=== PATIENT | female | born 1985 | race Caucasian/White ===

== ENCOUNTER 2017-12-20 15:25 | Inpatient (IN) ==
[~2017-12-20 15:25] MED LIST: DiphenhydrAMINE 50 MG/ML INJECTION IVP PRN; NALOXONE 0.4 MG/ML INJECTION IVP PRN; ONDANSETRON 4 MG/2 ML INJECTION IVP PRN; ROPIVACAINE 1% 10MG/ML INJ 200 MG, SUFentanil 50 MCG in NS 100 ML EPI PRN
--- OUTSIDE RECORDS SUMMARY | 2017-12-20 15:33 | External Medical Summary | Referral Summary ---
:1985 Author Organization [facility] Address [address] [place] [address] JO[place] Kaur [id number] Care Team Providers Name Role Phone Omari Terry Primary Care Physician Encounter VC Date(s): 08/17/15 - 08/17/15 [facility] [address] [place] [phone] [place] Discharge Disposition: 01-Home or Self Care Attending Physician: Omari Terry MD Admitting Physician: Omari Terry MD Vital Signs Most recent to oldest [Reference Range]: 1 Temperature Tympanic [36.6-38.1 degC] 37.3 degC (08/17/15 1:50 PM) Peripheral Pulse Rate [60-100 bpm] 92 bpm (08/17/15 1:50 PM) Blood Pressure [90-140/60-90 mmHg] 134/86 mmHg (08/17/15 1:50 PM) SpO2 98 % (08/17/15 1:50 PM) Problem List Condition Effective Dates Status Health Status Informant Abnormal loss of weight(Confirmed) Active Acute bronchitis(Confirmed) Active Acute chest pain(Confirmed) Active Acute gastritis(Confirmed) Active Acute pharyngitis(Confirmed) Active D-dimer, elevated(Confirmed) Active Early satiety(Confirmed) Active med sun exposure and no serious Active sunburns(Confirmed) Fatigue(Confirmed) Active Fever(Confirmed) Active Ingrown toenail(Confirmed) Active Common migraine(Confirmed) Active Nausea(Confirmed) Active Pain around both eyes(Confirmed) Active Thrombocytopenia(Confirmed) Active Acute viral syndrome(Confirmed) Active Allergies, Adverse Reactions, Alerts No Known Medication Allergies Medications cephalexin 500 mg oral capsule 500 mg 1 caps, Oral, QID, # 30 caps, 0 Refill(s), [id number], 1 caps Oral QID Start Date: 08/17/15 Stop Date: 08/25/15 Status: Orderedibuprofen as needed for pain, 0 Refill(s) Start Date: 04/28/15 Status: OrderedSprintec 0.25 mg-35 mcg oral tablet 1 tabs, Oral, Daily, # 28 tabs, 0 Refill(s) Start Date: 08/17/15 Status: Ordered Results No data available for this section Immunizations Vaccine Date Refusal Reason tetanus/diphth/pertuss (Tdap) adult/adol 08/17/15 tetanus/diphth/pertuss (Tdap) adult/adol 06/30/08 hepatitis A-hepatitis B vaccine 01/11/09 hepatitis A-hepatitis B vaccine 11/16/08 hepatitis A-hepatitis B vaccine 06/30/08 human papillomavirus vaccine 11/16/08 influenza virus vaccine, inactivated1 08/04/14 influenza virus vaccine, live 08/01/13 1Result Comment: [08/04/2014] See scanned document Procedures Procedure Date Related Diagnosis Body Site Incision and drainage of abscess (eg, carbuncle, 08/17/15 suppurative hidradenitis, cutaneous or subcutaneous abscess, cyst, furuncle, or paronychia); simple or single.. Extraction of wisdom tooth Social History Social History Type Response Smoking Status Never smoker Assessment and Plan Extracted from: Title: Ambulatory Patient Education Author: Omari Terry MD Date: Family Medicine Abscess An abscess is an infected area that contains a collection of pus and debris. It can occur in almost any part of the body. An abscess is also known as a furuncle or boil. CAUSES An abscess occurs when tissue gets infected. This can occur from blockage of oil or sweat glands, infection of hair follicles, or a minor injury to the skin. As the body tries to fight the infection, pu s collects in the area and creates pressure under the skin. This pressure causes pain. People with weakened immune systems have difficulty fighting infections and get certain abscesses more often. SYMPTOMS Usually an abscess develops on the skin and becomes a painful mass that is red , warm, and tender. If the abscess forms under the skin, you may feel a moveable soft area under the skin. Some abscesses br eak open (rupture) on their own, but most will continue to get worse without care. The infection can spread deeper into the body and eventually into the bloodstream, causing you to feel ill. DIAGNOSIS Your caregiver will take your medical history and perform a physical exam. A sample of fluid may also be taken from the abscess to determine what is causing your infection. TREATMENT Your caregiver may prescribe antibiotic medicines to fight the infection. However, taking antibiotics alone usually does not cure an abscess. Your caregiver may need to make a small cut (incision) in th e abscess to drain the pus. In some cases, gauze is packed into the abscess to reduce pain and to continue draining the area. HOME CARE INSTRUCTIONS Only take xxxw-npe-yqduuct or prescription medicines for pain, discomfort , or fever as directed by your caregiver. If you were prescribed antibiotics, take them as directed. Finish them even if you start to feel better. If gauze is used, follow your caregiver's directions for changing the gauze. To avoid spreading the infection: Keep your draining abscess covered with a bandage. Wash your hands well. Do not share personal care items, towels, or whirlpools with others. Avoid skin contact with others. Keep your skin and clothes clean around the abscess. Keep all follow-up appointments as directed by your caregiver. SEEK MEDICAL CARE IF: You have increased pain, swelling, redness, fluid drainage, or bleeding. You have muscle aches, chills, or a general ill feeling. You have a fever. MAKE SURE YOU: Understand these instructions. Will watch your condition. Will get help right away if you are not doing well or get worse. Document Released: 07/04/2006 Document Revised: 03/25/2013 Document Reviewed: 12/06/2012 ExitCare Patient Information 2015 L2 [facility]. This information is not intended to replace advice given to you by your health care provider. Make sure you discuss any questions you have with your health care provider. No follow up information was provided. Extracted from: Title: great toe abscess Author: Omari Terry MD Date: 08/17/15 Impression and Plan Diagnosis Abscess of great toe (KDI26-TY L02.611, Working, Medical). Acute bronchitis (URQ13-QU J20.9, Working, Medical). Acute URI (XCQ19-EV J01.40, Working, Medical). Plan: 1) The right great toe was prepped in the usual sterile fashion, then then the proximal nail was incised with battery-powered cautery and copious pus expressed from the incision. This was cultu red and a bandaid applied. The patient tolerated the procedure well and felt much better afterwards. 2) Keep the toe completely dry for at least 24 hours. 3) Tdap was given today. 4) Take the Cephalexin as prescribed. Interference with the effectiveness of the BCP was told to the patient. 5) Followup as needed.. Orders Orders (Selected) Outpatient Orders Ordered Boostrix (Tdap): 0.5 mL, IntraMuscular, Once Drain Skin Abscess, Simple/Single 45468: Office Visit Level 3 Est 41074: Ordered (Pending Collection) Wound Culture: Prescriptions Prescribed cephalexin 500 mg oral capsule: 500 mg=1 caps, Oral, QID, 30 caps, 0 Refill(s). Dx/Order Association Plan: Diagnosis: Abscess of great toe Comment: Ordered: Drain Skin Abscess, Simple/Single 42178; 08/17/15 15:02: 00 MYCOLOGIST, 1, Abscess of great toe Office Visit Level 3 Est 76934; 08/17/15 15:00:00 MYCOLOGIST, 25, Abscess of great toe | Acute bronchitis | Acute URI Diagnosis: Acute URI Comment: Ordered: Office Visit Level 3 Est 66506; 08/17/15 15:00:00 MYCOLOGIST, 25, Abscess of great toe | Acute bronchitis | Acute URI Diagnosis: Acute bronchitis Comment: Ordered: Office Visit Level 3 Est 16140; 08/17/15 15:00:00 MYCOLOGIST, 25, Abscess of great toe | Acute bronchitis | Acute URI Additional Orders: Comment: Ordered: cephalexin 500 mg oral capsule,500 mg 1 caps, Oral, QID, # 30 caps, 0 Refill(s), Pharmacy: [facility] #[id number], 1 caps Oral QID End of Orders ."
--- OUTSIDE RECORDS SUMMARY | 2017-12-20 15:33 | External Medical Summary | Continuity of Care Document ---
:1985 Author Organization [facility] Address [address] [place], [place] [id number] Phone Care Team Providers Name Role Phone Omari Terry MD Unavailable Allergies, Adverse Reactions, Alerts Substance Reaction Severity Status No Known Drug Allergies Unknown Active Medications Medication Instructions Dosage Effective Dates Status Comments (start - stop) KERYDIN (unknown apply by topical - Active strength) route every day to affected toenail(s) multivitamin capsule take 1 capsule by Not Available - Active oral route every day amoxicillin 500 mg take 1 capsule by - Active capsule oral route every 12 hours Problems Condition Effective Dates (start - stop) Clinical Status Encounter for suprvsn of normal - , second trimester 27 weeks gestation of - Pap Smear Screening, Cervix - Encounter for suprvsn of normal - , first trimester Less than 8 weeks gestation of - Encounter for suprvsn of normal - , third trimester 29 weeks gestation of - Unspecified lump in breast Unspecified lump in breast Unspecified lump in breast Unspecified lump in breast Unspecified lump in breast Dysfunctional Uterine Bleeding 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 (general) (routine) w/o abn findings Pap Smear Screening, Cervix Encounter for surveillance of contraceptive pills Complete or unsp spontaneous without complication Matern care for oth or susp poor fetl - grth, 2nd tri, unsp 14 weeks gestation of - Matern care for oth or susp poor fetl - grth, 2nd tri, unsp Contact w and exposure to oth viral - communicable diseases 18 weeks gestation of - Contact w and exposure to oth viral - communicable diseases Encounter for suprvsn of normal - , first trimester 9 weeks gestation of - Encounter for suprvsn of normal - , second trimester 18 weeks gestation of - Encounter for suprvsn of normal - , second trimester 25 weeks gestation of - Encounter for suprvsn of normal - , second trimester 22 weeks gestation of - Initiation of Oral Contraceptives - Active Breast Lump/Mass - Active Active Procedures Procedure Date OB Visit No Charge Results Test Name Date and Time Measure Units Reference Range Abnormal Flag Comments Unknown Advance Directives Directive Yes / No Effective Date File Name Unknown Encounters Encounter Practice Location Reason(s) Diagnoses Date Provider Care Team Description For Visit Members Rupesh [place] Encounter for Oct- Judd Referring In Womens suprvsn of normal 2-201 Katharina. Provider: Jaspreet ABARCA, , third 8 700 Omari [address] [email or web address] weeks [address] [facility], 1522, gestation of Center [address] [place] [address], [facility] [address] [facility], 120, [place], [id number], Ashwin Simla, [facility] [place], [address]. tel:[phone] tel: [phone] , . [id number] tel: [phone] [facility] Encounter for Sep- Judd Referring In Womens suprvsn of normal 8-201 Katharina. Provider: Jaspreet ABARCA, , second 7 700 Omari PO Box [id number] weeks Medical Mara B, 1522, gestation of Center [address] [place] [address], Dr [facility], 120, [place], [id number], Ashwin Christopher, [facility] [place], [address]. tel: [phone] tel: , . [id number] tel: [phone] [facility] Encounter for Dec-0 Judd Referring In Womens suprvsn of normal 4-201 Katharina. Provider: Jaspreet ABARCA, , second 7 700 Omari PO Box [id number] [address] [facility], 1522, gestation of Center [address], , [facility], 120, Center, [id number], Ashwin Simla, [facility] [place], [address]. tel:[phone] tel: , [place]. [id number] tel: [phone] Rupesh [place] Encounter for Nov-1 Judd Referring In Womens suprvsn of normal 3-201 Katharina. Provider: Jaspreet ABARCA, , second 7 700 Omari PO Box [email or web address] [facility], 1522, gestation of [address], , [facility], 120, Center, [id number], Ashwin Simla, [facility] [place], [address]. tel: tel: , [place]. [id number] tel:[phone] Rupesh [place] Encounter for Oct-1 Judd Referring In Womens suprvsn of normal 8-201 Katharina. Provider: Jaspreet ABARCA, , second 7 700 Omari PO Box [email or web address] weeks [facility], 1522, gestation of [place] [address] [place], , [facility], 120, Center, [id number], Ashwin Christopher, [facility] [place], [address]. tel:[phone] tel: , [place]. [id number] tel: [phone] Rupesh [place] Matern care for Oct-1 Judd Referring In Womens Ultrasound oth or susp poor 8-201 Katharina. Provider: Jaspreet ABARCA, fetl grth, 2nd 7 700 Omari PO Box tri, unspContact [facility], 1522, w and exposure to [place] [address], oth viral , [facility], communicable 120, Center, [id number], [id number] weeks Ashwin [place], [place], [address]. tel: [phone] tel: , . [id number] tel:[phone] Rupesh [place] Contact w and Sep-2 Judd Referring In Womens exposure to oth 1-201 Katharina. Provider: Jaspreet ABARCA, viral 7 700 Omari PO Box communicable Medical [facility], 1522, diseases Center [address], , [facility], 120, Center, [id number], Ashwin Simla, [facility] [place], [address]. tel:[phone] tel: , [place]. [id number] tel: [phone] Rupesh [place] Matern care for Sep- Judd Referring In Womens oth or susp poor 8-201 Katharina. Provider: Jaspreet ABARCA, fetl grth, 2nd 7 700 Omari PO Box tri, [id number] weeks [address] [facility], 1522, gestation of Center [address] [place], [place] [address]ta, , [facility], 120, Center, , Ashwin Simla, [facility] [place], [address]. tel:[phone] tel: , [place]. [id number] tel: [phone] Rupesh [place] Encounter for May- Judd Referring In Womens suprvsn of normal 5-201 Katharina. Provider: Jaspreet ABARCA, , first 7 700 Omari PO Box [email or web address] weeks [address] [facility], 1522, gestation of Center [facility] [address], , [facility], 120, Center, [id number], Ashwin Christopher, [facility] [place], [address]. tel:[phone] tel: , [place]. [id number] tel: [phone] Rupesh [place] Encounter for Apr-3 Judd Referring In Womens suprvsn of normal 1-201 Katharina. Provider: Jaspreet ABARCA, , first 7 700 Omari PO Box trimesterLess Medical Mara B, 1522, than 8 weeks [address], gestation of Dr [facility], 120, Center, [id number], Ashwin Simla, [facility] [place], [address]. tel:[phone] tel: , . [id number] tel: [phone] Rupesh [place] Unspecified lump Feb-2 Judd In Womens in breast 4-201 [place]. Jaspreet ABARCA, 7 700 PO Box Medical 1522, [place] [address] [place], [facility] [place], 120, [id number], [place], [place], tel:[phone] , [place]. tel: [phone] Rupesh [place] Complete or unsp Feb-2 Judd Referring In Womens spontaneous 0-201 [place]. Provider: Jaspreet ABARCA, without 7 700 Omari PO Box complication Medical [facility], 1522, Center [facility] Dr [place], [facility], 120, Center, [id number], Ashwin Christopher, [facility] [place], [address]. tel:[phone] tel: , [place]. [id number] tel: [phone] Rupesh [place] Pap Smear Feb-0 Judd Referring In Womens Screening, Cervix 8- [place]. Provider: Jaspreet ABARCA, 7 700 Omari PO Box [facility], 1522, Center [facility] Dr [place], [facility], 120, Center, [id number], Ashwin Christopher, [facility] [place], [address]. tel:[phone] tel: , [place]. [id number] tel: [phone] Rupesh [place] Unspecified lump Oct-1 Judd Referring In Womens in breast 1-201 [place]. Provider: Jaspreet ABARCA, 6 700 Omari PO Box [facility], 1522, Center [facility] Dr [place], [facility], 120, Center, [id number], Ashwin Christopher, [facility] [place], [address]. tel:[phone] tel: , [place]. [id number] tel: [phone] Rupesh [place] Unspecified lump Sep-0 Judd In Womens in 6-201 [place]. Jaspreet ABARCA, breastUnspecified 6 700 PO Box lump in breast Medical 1522, [place] [address] [place], [facility] [place], 120, [id number], [place], [place], tel:[phone] , [place]. tel: [phone] Rupesh [place] Dysfunctional Feb-2 Judd Referring In Womens Uterine Katharina. Provider: Bereket Yapntfelicia 6 700 Omari PO Box for bacon slicer exam Awais Briscoe, 1522, (general) Center [facility] [place], (routine) w/o abn , [facility] [place], findingsPap Smear 120, Center, , Screening, [facility], [place], [address]. tel:+ for surveillance [phone] tel:[phone] of contraceptive , [place]. [id number] pills tel: [phone] [facility] Unspecified lump b- Judd In Womens in breast Katharina. Jaspreet ABARCA, 6 700 PO Box Medical 1522, [place], , [facility] [place], 120, , [place], tel: [phone] , . tel: [phone] Family History Family Member Diagnosis Age At Onset No family history of Pulmonary Embolism No family history of Thyroid Disorder No family history of Osteoporosis No family history of Venous Thrombosis No family history of Breast Cancer No family history of Uterine Cancer Paternal Grandfather Cardiovascular Disease No family history of Epilepsy No family history of Lung Disease No family history of Kidney Disease No family history of Hypertension No family history of Colon Cancer No family history of Stroke No family history of Ovarian Cancer Paternal Grandfather Diabetes mellitus Immunizations Vaccine Date Status Comments Influenza, injectable, completed Source: New Immunization Record quadrivalent, preservative free, 3 yrs or older Influenza, injectable, completed Source: New Immunization Record quadrivalent, preservative free, 3 yrs or older Payers Payer name Insurance type Covered constitution party ID Authorization(s) [employer] CI [id number] [facility] CI [id number] [employer] CI [id number] [employer] CI [id number] Social History Type Description Quantity Date Captured Alcohol Use Details Caffeine Use Details Unknown Tobacco Use Status Unknown Smoking Status Never smoker Vital Signs Date / Height Weight BMI Pulse Blood Temperature Respiratory Body Head BMI Time: Rate Pressure Rate Surface Circumference percentile Area 154.20 24.8 120/70 -2017 lbs 9 mm[Hg] 3:30 kg/m PM eter (2) Chief Complaint And Reason For Visit Unknown Chief Complaint And Reason For Visit Reason For Referral Reason For Referral Unknown Plan Of Care Date Type Action Status Appointment Margarita Smith BOOKED Appointment Margarita Smith BOOKED Appointment Margarita Smith BOOKED Appointment Margarita Smith BOOKED Appointment Margarita Smith BOOKED Appointment Margarita Smith BOOKED Appointment Margarita Smith BOOKED Future Order: Radiology Order Breast Ultrasound Right Breast Ordered ([id number]) Future Order: Radiology Order Breast Ultrasound Right Breast Ordered ([id number]) Future Order: Radiology Order Diagnostic Mammogram Right Breast- Ordered If indicated ([id number]) Future Order: Radiology Order Breast Ultrasound Right Breast Ordered ([id number]) Future Order: Radiology Order Diagnostic Mammogram Right Breast, Ordered if indicated ([id number]) Future Order: Radiology Order Complete OB Ultrasound > 14 Ordered Weeks ([id number]) Future Order: Lab Order Hemoglobin ([id number]) Ordered Future Order: Lab Order Hematocrit ([id number]) Ordered Future Order: Lab Order Gest. Diabetes 1-Hr Screen ([id number]) Ordered Date Type Problem Goal Intervention Status Start Date Unknown. History Of Present Illness Encounter Date Complaint History Of Present Illness This patient has no known history of present illness Functional Status Encounter Date Functional Assessment Cognitive Assessment Unknown Medications Administered Medication Instructions Dosage Effective Dates (start - stop) Status Comments Drug Treatment Unknown Instructions Date Instruction Additional Information gestational glucose lab screening HIV and other routine tests risk factors identified by history anticipated course of care nutrition and weight gain counseling, special diet toxoplasmosis precautions (cats / raw meat) exercise indications for ultrasound environmental / work hazards travel tobacco (ask, advise, assess, assist and arrange) alcohol illicit / recreational drugs use of any medications (including supplements, vitamins, herbs, OTC drugs) smoking counseling domestic violence seat belt use genetic testing new ob handbook dentist tobacco (ask, advise, assess, assist and arrange) alcohol illicit / recreational drugs use of any medications (including supplements, vitamins, herbs, OTC drugs) smoking counseling domestic violence seat belt use genetic testing Zika virus assessment & precautions dentist anticipated course of care nutrition and weight gain counseling, special diet toxoplasmosis precautions (cats / raw meat) exercise indications for ultrasound HIV and other routine tests risk factors identified by history influenza vaccine environmental / work hazards travel new ob handbook
--- OUTSIDE RECORDS SUMMARY | 2017-12-20 15:33 | External Medical Summary | Referral Summary ---
:1985 Author Organization [facility], [facility] Address [address] [place] [address] [place] [address] Care Team Providers Name Role Phone Omari Terry Primary Care Physician Encounter VC Date(s): 09/13/15 - 09/13/15 [facility] [place] [address] [place] [phone] [place] Discharge Disposition: 01-Home or Self Care Attending Physician: Omari Terry MD Admitting Physician: Omari Terry MD Vital Signs Most recent to oldest [Reference Range]: 1 Temperature Oral [35.8-37.3 degC] 36.6 degC (09/13/15 2:47 PM) Peripheral Pulse Rate [60-100 bpm] 88 bpm (09/13/15 2:47 PM) Blood Pressure [90-140/60-90 mmHg] 122/76 mmHg (09/13/15 2:47 PM) SpO2 100 % (09/13/15 2:47 PM) Problem List Condition Effective Dates Status [...] Reactions, Alerts No Known Medication Allergies Medications ibuprofen as needed for pain, 0 Refill(s) Start Date: 04/28/15 Status: OrderedSprintec 0.25 mg-35 mcg oral tablet 1 tabs, Oral, Daily, # 28 tabs, 0 Refill(s) Start Date: 08/17/15 Status: Orderedtriamcinolone 0.1% mucous membrane paste 1 tripp, Oral, TID, as needed for mouth sores, # 5 g, 1 Refill(s), Pharmacy: [facility] #[id number] Start Date: 09/08/15 Status: Ordered Results No data available for [...] Procedures Procedure Date Related Diagnosis Body Site Extraction of wisdom tooth Social History Social History Type Response Smoking Status Never smoker Assessment and Plan Extracted from: Title: Ambulatory Patient Education Author: Omari Terry MD Date: 09/13/15 Family Medicine Erythema Nodosum Erythema nodosum is also called "painful red nodules on the legs". Symptoms can include sudden onset of fever, fatigue and joint pains. Red, deep, tender, raised, bruise-like bumps form on the rider, or sometimes on the arms or trunk. The skin over the bumps is usually shiny. The symptoms usually last 1-2 weeks. The symptoms usually improve once the cause is treated. This illness may be caused by strep or fungal infection, drug reaction, , or other medical conditions. Treating the cause is important to early recovery. Erythema nodosum occurs at any age and in both sexes but more often in young adult women. Erythema nodosum is not a skin infection. It is a reaction to something internal. In most cases the illness and bumps go away with treatment. You should avoid any medicine that may have caused this reac tion. Antihistamine drugs, anti-inflammatory drugs or cortisone medicine may be prescribed to relieve symptoms. SSKI drops (Lissie) taken with juice at breakfast, lunch and dinner may have an anti-inflamm atory effect and speed the healing. Bed rest and limiting vigorous exercise help to shorten the course of erythema nodosum. Elevation of the affected limb also helps in recovery. As the condition gets better, the bumps flatten and your skin may heal with temporary bruise bernstein. These dark bernstein will clear up in several months and they are a good sign that your skin is healing. SEEK IMMEDIATE MEDICAL CARE IF: Your condition worsens, or if you have more severe symptoms such a high fever, sore throat, or repeated vomiting. Document Released: 11/01/2005 Document Revised: 12/16/2012 Document Reviewed: 11/05/2009 Exit[employer] Patient Information 2015 [employer]. This information is not intended to replace advice given to you by your health care provider. Make sure you discuss any questions you have with your health care provider. No follow up information was provided. Extracted from: Title: erythema nodosum Author: Omari Terry MD Date: 09/13/15 Impression and Plan Diagnosis Aphthous stomatitis (DNG29-VX K12.0, Working, Medical). Erythema nodosum (USB11-FC L52, Working, Medical). Plan: 1) The TB skin test was red today: 0 mm induration on the left forearm. 2) The lab was reviewed and was all normal 3) The CXR was normal. No evidence for TB or sarcoidosis. 4) Reassurance: the erythema nodosum should resolve by 6-8 weeks, and should be improving by the end of September. 5) Followup as needed. 6) No change to your current meds unless the EN doesn't improve within a few weeks.. Orders Orders (Selected) Outpatient Orders Ordered Office Visit Level 3 Est 34414: . Dx/Order Association Plan: Diagnosis: Aphthous stomatitis Comment: Ordered: Office Visit Level 3 Est 12979; 09/13/15 15:09:00 [employer], Erythema nodosum | Aphthous stomatitis Diagnosis: Erythema nodosum Comment: Ordered: Office Visit Level 3 Est 48282; 09/13/15 15:09:00 [employer], Erythema nodosum | Aphthous stomatitis End of Orders .
--- OUTSIDE RECORDS SUMMARY | 2017-12-20 15:33 | External Medical Summary | Referral Summary ---
:1985 Author Organization [facility] [place], [facility] Address [address] [place] [address] [place]aur [address] Care Team Providers Name Role Phone Omari Terry Primary Care Physician Encounter VC Date(s): 04/27/15 - 04/27/15 [facility] [place], [address] [place] [address] [place] Discharge Disposition: 01-Home or Self Care Attending Physician: Omari Terry MD Vital Signs Most recent to oldest [Reference Range]: 1 Temperature Tympanic [36.6-38.1 degC] 37.4 degC (04/27/15 5:10 PM) Peripheral Pulse Rate [60-100 bpm] 88 bpm (04/27/15 5:10 PM) Blood Pressure [90-140/60-90 mmHg] 110/78 mmHg (04/27/15 5:10 PM) SpO2 100 % (04/27/15 5:10 PM) Problem List Condition Effective Dates Status [...] sores, # 5 g, 1 Refill(s), Pharmacy: [facility] #[id number] Start Date: 09/08/15 Status: Ordered Results No [...] Patient Education Author: Omari Terry MD Date: 04/27/15 Family Medicine Chest Pain (Nonspecific) It is often hard to give a specific diagnosis for the cause of chest pain. There is always a chance that your pain could be related to something serious, such as a heart attack or a blood clot in the dimas ngs. You need to follow up with your caregiver for further evaluation. CAUSES Heartburn. Pneumonia or bronchitis. Anxiety or stress. Inflammation around your heart (pericarditis ) or lung (pleuritis or pleurisy ). A blood clot in the lung. A collapsed lung (pneumothorax ). It can develop suddenly on its own ( spontaneous pneumothorax ) or from injury (trauma ) to the chest. Shingles infection (herpes zoster virus). The chest wall is composed of bones, muscles, and cartilage. Any of these can be the source of the pain. The bones can be bruised by injury. The muscles or cartilage can be strained by coughing or overwork. The cartilage can be affected by inflammation and become sore ( costochondritis ). DIAGNOSIS Lab tests or other studies, such as X-rays, electrocardiography, stress testing , or cardiac imaging, may be needed to find the cause of your pain. TREATMENT Treatment depends on what may be causing your chest pain. Treatment may include: Acid blockers for heartburn. Anti-inflammatory medicine. Pain medicine for inflammatory conditions. Antibiotics if an infection is present. You may be advised to change lifestyle habits. This includes stopping smoking and avoiding alcohol, caffeine, and chocolate. You may be advised to keep your head raised (elevated ) when sleeping. This reduces the chance of acid going backward from your stomach into your esophagus. Most of the time, nonspecific chest pain will improve within 2 to 3 days with rest and mild pain medicine. HOME CARE INSTRUCTIONS If antibiotics were prescribed, take your antibiotics as directed. Finish them even if you start to feel better. For the next few days, avoid physical activities that bring on chest pain. Continue physical activities as directed. Do not smoke. Avoid drinking alcohol. Only take rtzw-ipe-xomgcpg or prescription medicine for pain, discomfort, or fever as directed by your caregiver. Follow your caregiver's suggestions for further testing if your chest pain does not go away. Keep any follow-up appointments you made. If you do not go to an appointment, you could develop lasting (chronic ) problems with pain. If there is any problem keeping an appointment, you must call to reschedule. SEEK MEDICAL CARE IF: You think you are having problems from the medicine you are taking. Read your medicine instructions carefully. Your chest pain does not go away, even after treatment. You develop a rash with blisters on your chest. SEEK IMMEDIATE MEDICAL CARE IF: You have increased chest pain or pain that spreads to your arm, neck, jaw , back, or abdomen. You develop shortness of breath, an increasing cough, or you are coughing up blood. You have severe back or abdominal pain, feel nauseous, or vomit. You develop severe weakness, fainting, or chills. You have a fever. THIS IS AN EMERGENCY. Do not wait to see if the pain will go away. Get medical help at once. Call your local emergency services (911 in [place] Do not drive yourself to the hospital. MAKE SURE YOU: Understand these instructions. Will watch your condition. Will get help right away if you are not doing well or get worse. Document Released: 07/04/2006 Document Revised: 12/16/2012 Document Reviewed: 04/29/2009 [facility] Patient Information 2014 [employer] [facility]. No follow up information was provided. Extracted from: Title: eye pain, chest pain, elevated Author: Omari Terry MD Date: D-Dimer Impression and Plan Diagnosis Acute chest pain (ICD9 786.50, Working, Medical). Acute viral syndrome (ICD9 079.99, Working, Medical). D-dimer, elevated (ICD9 790.92, Working, Medical). Pain around both eyes (ICD9 379.91, Working, Medical). Plan: D-Dimer was ordered, which came back elevated. Patient was advised ( per phone) later in the evening to go to the ER for further evaluation of her chest pain. I spoke with the ER doctor here in [place], advising that I thought that the patient should be evaluated for pulmonary embolism due to the chest pain, family history of renal artery thrombosis, and the elevated D-Dimer. . Orders Orders (Selected) Outpatient Orders Ordered Office Visit Level 4 Est 80868: . Dx/Order Association Plan: Diagnosis: Acute chest pain Comment: Ordered: Office Visit Level 4 Est 70592; 04/27/15 20:59:00 CDT, Acute chest pain | Pain around both eyes | D-dimer, elevated | Acute viral syndrome Diagnosis: Acute viral syndrome Comment: Ordered: Office Visit Level 4 Est 35279; 04/27/15 20:59:00 CDT, Acute chest pain | Pain around both eyes | D-dimer, elevated | Acute viral syndrome Diagnosis: D-dimer, elevated Comment: Ordered: Office Visit Level 4 Est 12324; 04/27/15 20:59:00 CDT, Acute chest pain | Pain around both eyes | D-dimer, elevated | Acute viral syndrome Diagnosis: Pain around both eyes Comment: Ordered: Office Visit Level 4 Est 02823; 04/27/15 20:59:00 CDT, Acute chest pain | Pain around both eyes | D-dimer, elevated | Acute viral syndrome End of Orders ."
--- OUTSIDE RECORDS SUMMARY | 2017-12-20 15:34 | External Medical Summary | Continuity of Care Document ---
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 Pap Smear Screening, Cervix Encounter for surveillance of contraceptive pills Complete or unsp spontaneous without complication Matern care for oth or susp poor fetl - grth, 2nd tri, unsp 14 weeks gestation of - Matern care for oth or susp poor fetl - gr, 2nd tri, unsp Contact w and exposure to oth viral - communicable diseases 18 weeks gestation of - Contact w and exposure to oth viral - communicable diseases Encounter for suprvsn of normal - , first trimester 9 weeks gestation of - Encounter for suprvsn of normal - , second trimester 27 weeks gestation of - Encounter for suprvsn [...] Provider Care Team Description For Visit Members [facility] Encounter for Sep- Judd Referring In Womens suprvsn of normal 8-201 Katharina. Provider: Jaspreet ABARCA, , second 7 700 Omari [address] [email or web address] weeks Medical [facility], 1522, gestation of [address] , [facility], 120, [place], [id number], [place], [facility] [place], [address]. tel:+ [phone] tel: , . [id number] tel: [phone] [facility] Encounter for Dec-0 Judd Referring In Womens suprvsn of normal 4-201 Katharina. Provider: Jaspreet ABARCA, , second 7 700 Omari PO Box [email or web address] weeks Medical [facility], 1522, gestation of Center [address] [place] [address], [facility] , [facility], 120, [place], [id number], [place], [facility] [place], [address]. tel: [phone] tel: , . [id number] tel: [phone] [facility] Encounter for Nov-1 Judd Referring In Womens suprvsn of normal 3-201 Katharina. Provider: Jaspreet ABARCA, , second 7 700 Omari PO Box [email or web address] weeks Medical [facility], 1522, gestation of Center [address] [place] [address], , [facility], 120, Center, [id number], [place], [address]. tel:[phone] tel: , [place]. [id number] tel: [phone] Rupesh [place] Encounter for Oct-1 Judd Referring In Womens suprvsn of normal 8-201 Katharina. Provider: Jaspreet ABARCA, , second 7 700 Omari PO Box [email or web address] weeks Medical [facility]a B, 1522, gestation of Center [address] [place], , [facility], 120, Center, [id number], [place], [address]. tel: tel: , [place]. [id number] tel:[phone] Rupesh [place] Matern care for Oct-1 Judd Referring In Womens Ultrasound oth or susp poor 8-201 Katharina. Provider: ranjan Yap, 2nd 7 700 Omari PO Box tri, unspContact Medical [facility], 1522, w and exposure to Center [address] [place], oth viral , [facility], communicable 120, Center, [id number], weeks [place], [place], [address]. tel: [phone] tel: , [place]. [id number] tel: [phone] Rupesh [place] Contact w and Sep-2 Judd Referring In Womens exposure to oth 1-201 Katharina. Provider: Jaspreet ABARCA, viral 7 700 Omari PO Box communicable Medical [facility], 1522, diseases Center [address] [place], [address], [facility], 120, Center, [id number], [place], [address]. tel: tel: , [place]. [id number] tel: [phone] Rupesh Overbrook Matern care for Sep-1 Judd Referring In Womens oth or susp poor 8-201 Katharina. Provider: ranjan Yap, 2nd 7 700 Omari PO Box tri, [email or web address] weeks Medical Mara B, 1522, gestation of Center [address] [place], , [facility], 120, Center, [id number], [place], [address]. tel:[phone] tel: , [place]. [id number] tel: [phone] Rupesh [place] Encounter for Judd Referring In Womens suprvsn of normal 5-201 Katharina. Provider: Jaspreet ABARCA, , first 7 700 Omari PO Box trimester9 weeks Medical Mara B, 1522, gestation of Center [address] [address] [place], , [facility], 120, Center, , [place], [address]. tel:[phone] tel: , [place]. [id number] tel: [phone] Rupesh [place] Encounter for Judd Referring In Womens suprvsn of normal 1-201 Katharina. Provider: Jaspreet ABARCA, , first 7 700 Omari PO Box trimesterLess Medical [facility], 1522, than 8 weeks Center [address], gestation of Dr [facility], 120, Center, , [place], [facility] [place], [address]. tel:[phone] tel: , [place]. [id number] tel: [phone] Rupesh [place] Unspecified lump Feb-2 Judd In Womens in breast 4-201 Katharina. Jaspreet ABARCA, 7 700 PO Box Medical [address] [place] [address], [facility], 120, [id number], [place], [place], tel:[phone] , [place]. tel: [phone] Rupesh Overbrook Complete or unsp Feb-2 Judd Referring In Womens spontaneous 0-201 Katharina. Provider: Jaspreet ABARCA, without 7 700 Omari PO Box complication Medical Mara B, 1522, Center [address], [facility], 120, Center, [id number], [place], [address]. tel: tel: , [place]. [id number] tel: [phone] [facility] Pap Smear Feb-0 Judd Referring In Womens Screening, Cervix [place]. Provider: Jaspreet ABARCA, 7 700 Omari PO Box Medical [facility], 1522, Center [address], [facility], 120, Center, [id number], [place], [place], [address]. tel:[phone] tel: , [place]. [id number] tel: [phone] Rupesh [place] Unspecified lump Oct-1 Judd Referring In Womens in breast [place]. Provider: Jaspreet ABARCA, 6 700 Omari PO [facility], 1522, Center [facility] [address], [facility], 120, Center, [id number], [place], [facility] [place], [address]. tel:[phone] tel: , [place]. [id number] tel: [phone] Rupesh [place] Unspecified lump Sep-0 Judd In Womens in [place]. Jaspreet ABARCA, breastUnspecified 6 700 PO Box lump in breast Medical [address] [place] [address], [facility], 120, , [facility] [place], tel:[phone] , [place]. tel: [phone] Rupesh [place] Dysfunctional Feb-2 Judd Referring In Womens Uterine [place]. Provider: Jaspreet ABARCA, BleedingEncntr 6 700 Omari PO Box for assistant attorney general exam Medical [facility], 1522, (general) Center [address] [place] [address], (routine) w/o abn , [facility], findingsPap Smear 120, Center, , Screening, [place], [place], [address]. tel: for surveillance tel: of contraceptive , [place]. [id number] pills tel: [phone] Rupesh [place] Unspecified lump Feb-1 Judd In Womens in breast [place]. Jaspreet ABARCA, 6 700 PO Box Medical [address], [facility] [place], 120, [id number], [facility] [place], tel:[phone] , [place]. tel: [phone] Family History Family Member Diagnosis Age At [...] older Payers Payer name Insurance type Covered democrat ID Authorization(s) [employer] CI [id number] [facility] CI [id number] [employer] CI [id number] [employer] CI [id number] Social History Type Description Quantity Date Captured Alcohol Use Details Caffeine Use Details Unknown Tobacco Use Status Unknown Smoking Status Never smoker Vital Signs Date / Height Weight BMI Pulse Blood Temperature Respiratory Body Head BMI Time: Rate Pressure Rate Surface Circumference percentile Area 153.70 24.8 102/70 -2017 lbs 0 mm[Hg] 3:04 kg/m PM eter (2) Chief Complaint And [...] BOOKED Appointment Margarita Smith BOOKED Future Order: Lab Order Hemoglobin ([id number]) Ordered Future Order: Lab Order Hematocrit ([id number]) Ordered Future Order: Lab Order Gest. Diabetes 1-Hr Screen ([id number]) Ordered Future Order: Radiology Order Breast Ultrasound Right Breast Ordered ([id number]) Future Order: Radiology Order Breast Ultrasound Right Breast Ordered ([id number]) Future Order: Radiology Order Diagnostic Mammogram Right Breast- Ordered If indicated ([id number]) Future Order: Radiology Order Breast Ultrasound Right Breast Ordered ([id number]) Future Order: Radiology Order Diagnostic Mammogram Right Breast, Ordered if indicated ([id number]) Future Order: Radiology Order Complete OB Ultrasound > 14 Ordered Weeks ([id number]) Date Type Problem Goal Intervention Status Start [...]
--- OUTSIDE RECORDS SUMMARY | 2017-12-20 15:34 | External Medical Summary | Continuity of Care Document ---
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) w/o abn findings Pap Smear Screening, Cervix Encounter for surveillance of contraceptive pills Complete or unsp spontaneous without complication Initiation of Oral Contraceptives - Active Breast Lump/Mass - Active Active Procedures Procedure Date No Charge Sonogram OB Visit No Charge OB Panel With An HIV Venpnctr fngr/heel/ear stick routne Urine Culture Infct antign, chlamydia trac, ampl Neisseria Gonorrhoeae, Amplification Cult, bactr, ident isolate, urine Results Test Name Date and Time Measure Units Reference Range Abnormal Flag Comments Panel Description: OBSTETRIC PANEL WHITE BLOOD CELL 11.3 Thousand/uL 3.8-10.8 H COUNT 10:45:00 RED BLOOD CELL 4.18 Million/uL 3.80-5.10 N COUNT 10:45:00 HEMOGLOBIN 12.6 g/dL 11.7-15.5 N 10:45:00 HEMATOCRIT 36.6 % 35.0-45.0 N 10:45:00 MCV 87.6 fL 80.0-100.0 N 10:45:00 MCH 30.1 pg 27.0-33.0 N 10:45:00 MCHC 34.4 g/dL 32.0-36.0 N 10:45:00 RDW 12.3 % 11.0-15.0 N 10:45:00 PLATELET COUNT 207 Thousand/uL 140-400 N 10:45:00 MPV 10.1 fL 7.5-12.5 N 10:45:00 ABSOLUTE 9300 cells/uL 1203-9527 H NEUTROPHILS 10:45:00 ABSOLUTE 1322 cells/uL 850-3900 N LYMPHOCYTES 10:45:00 ABSOLUTE 610 cells/uL 200-950 N MONOCYTES 10:45:00 ABSOLUTE 34 cells/uL 15-500 N EOSINOPHILS 10:45:00 ABSOLUTE 34 cells/uL 0-200 N BASOPHILS 10:45:00 NEUTROPHILS 82.3 % N 10:45:00 LYMPHOCYTES 11.7 % N 10:45:00 MONOCYTES 5.4 % N 10:45:00 EOSINOPHILS 0.3 % N 10:45:00 BASOPHILS 0.3 % N 10:45:00 ANTIBODY SCREEN, NO ANTIBODIES N RBC W/REFL ID, 10:45:00 DETECTED Reference range TITER AND AG No antibodies detected This assay is a screening test for the detection of red blood cell antibodies. The test is not to be used for pretransfusion screening or for the medical management of an alloimmunized . ABO GROUP O 10:45:00 RH TYPE RH(D) 10:45:00 POSITIVE RPR (DX) W/REFL NON-REACTIVE NON-REACTIV N TITER AND 10:45:00 E CONFIRMATORY TESTING HEPATITIS B NON-REACTIVE NON-REACTIV N SURFACE ANTIGEN 10:45:00 E RUBELLA ANTIBODY 1.98 index N Index (IGG) 10:45:00 Interpretation ----- <0.90 Not consistent with Immunity 0.90-0.99 Equivocal > or=1.00 Consistent with Immunity The presence of rubella IgG antibody suggests immunization or past or current infection withrubella virus.Test performed at [facility] [place] [address]Dtislky r: TERE MURGUIA DO,MPH Panel Description: HIV 1/2 ANTIGEN/ANTIBODY,FOURTH GENERATION W/RFL HIV NON-REACTIVE NON-REACTIVE N HIV-1 antigen and HIV-1/HIV- 2 antibodies were AG/AB, 10:45:00 notdetected. There is no laboratory evidence of 4TH GEN HIVinfection. PLEASE NOTE: This information has been disclosed toyou from records whose confidentiality may beprotected by state law. If your state requires suchprotection, then the state law prohibits you frommaking any further disclosure of the informationwithout the specific written consent of the personto whom it pertains, or as otherwise permitted by law.A general authorization for the release of medical orother information is NOT sufficient for this purpose. For additional information please refer tohttp://education.[employer]/faq/TXO376(This link is being provided for informational/educational purposes only.) The performance of this assay has not been clinicallyvalidated in patients less than 2 years old. Test performed at [place] [address]Gavbccva: TERE MURGUIA DO,MPH Panel Description: Bacteria identified in Urine by Culture CULTURE, URINE, 11:02:00 SEE NOTE CULTURE, URINE, ROUTINE ROUTINE MICRO NUMBER: [id number] TEST STATUS: FINAL SPECIMEN SOURCE: URINE SPECIMEN QUALITY: ADEQUATE RESULT: Single organism less than 10,000 CFU/mL isolated. These organisms, commonly found on external and internal genitalia, are considered colonizers. No further testing performed.REPORT COMMENT:RTest performed at [facility] [address] [address]Ylorqpsf: TERE MURGUIA DO,MPH Panel Description: CHLAMYDIA/N. GONORRHOEAE RNA, TMA CHLAMYDIA NOT DETECTED NOT DETECTED N TRACHOMATIS RNA, 10:50:00 TMA NEISSERIA NOT DETECTED NOT DETECTED N GONORRHOEAE RNA, 10:50:00 TMA [id number] SEE NOTE This test was 10:50:00 performed using the [employer] COMBO2 Assay([employer] The analytical performance characteristics of this assay, when used to test SurePath specimens havebeen determined by [employer]. Test performed at [facility] [address] [address]Ngixwvsg: TERE MURGUIA DO,MPH Advance Directives Directive Yes / No Effective Date File Name Unknown Encounters Encounter Practice Location Reason(s) Diagnoses Date Provider Care Team Description For Visit Members Rupesh [place] Encounter for Judd [facility] of normal 5-201 Katharina. Provider: Jaspreet ABARCA, , first 7 700 Omari [address] trimester9 weeks Medical Mara B, 1522, gestation of [place] [address], [address] [facility], [address], [place], [id number], [place], [facility], [place], [address]. tel: [phone] tel: [phone] , . [id number] tel: [phone] Rupesh [place] [facility]d [facility] 1-201 Katharina. Provider: Jaspreet ABARCA, , first 7 700 Omari PO [address] trimesterLess than Medical Mara B, 1522, 8 weeks gestation [place] [address] [place] [address], of , [facility], 120, Center, , [place], [facility], [place], [address]. tel:[phone] tel: , [place]. [id number] tel: [phone] Rupesh [place] Unspecified lump Feb-2 Judd In Womens in breast 4-201 [place]. Jaspreet ABARCA, 7 700 [facility] Medical [address], [place] [address] Prachi, [facility], 120, [id number], [facility], tel:[phone] , [place]. tel: [phone] Rupesh [place] Complete or unsp Feb-2 Judd Referring In Womens spontaneous 0-201 [place]. Provider: Jaspreet ABARCA, without 7 700 Omari [facility] complication [facility] B, 1522, Center [facility] Dr Prachi, [facility], 120, [place], , [place], [facility], [place], [address]. tel: tel: , [place]. [id number] tel: [phone] Rupesh [place] Pap Smear Feb-0 Judd Referring In Womens Screening, Cervix 8-201 [place]. Provider: Jaspreet ABARCA, 7 700 Omari [facility], 1522, Center [facility] Dr Prachi, [facility], 120, Center, [id number], [place], [facility], [place], [address]. tel:[phone] tel: , [place]. [id number] tel: [phone] Rupesh [place] Unspecified lump Oct-1 Judd Referring In Womens in breast 1-201 [place]. Provider: Jaspreet ABARCA, 6 700 Omari Luis [facility], 1522, Center [facility] Dr [place], [facility], 120, Center, [id number], [place], [facility], [place], [address]. tel:[phone] tel: , [place]. [id number] tel: [phone] Rupesh [place] Unspecified lump Sep-0 Judd In Womens in [place]. Jaspreet ABARCA, breastUnspecified 6 700 PO Box lump in breast Medical [address], [place] [address] Prachi, [facility], 120, [id number], [place], [place], tel: [phone] , [place]. tel: [phone] [facility] [place] Dysfunctional Feb-2 Judd Referring In Womens Uterine [place]. Provider: Jaspreet ABARCA, BleedingEncntr for 6 700 Omari PO Box make up artist exam (general) Medical [facility] B, 1522, (routine) w/o abn Center [address] [place] [address], findingsPap Smear , [facility], Screening, 120, [place], [id number], [facility] [place], [address]. tel: of contraceptive [phone] tel: pills , [place]. [id number] tel: [phone] Rupesh [place] Unspecified lump Feb-1 Judd In Womens in breast [place]. Jaspreet ABARCA, 6 700 [address] Medical [address], [place] [address] [place], [facility], 120, [id number], [facility] [place], tel: [phone] , [place]. tel: [phone] Family History Family Member Diagnosis Age At [...] older Payers Payer name Insurance type Covered green party ID Authorization(s) [employer] CI [id number] [facility] CI [id number] [facility] [id number] Social History Type Description Quantity Date Captured Alcohol Use Details Caffeine Use Details combo occasional per day Tobacco Use Status Never smoked tobacco Smoking Status Never smoker Vital Signs Date / Height Weight BMI Pulse Blood Temperature Respiratory Body Head BMI Time: Rate Pressure Rate Surface Circumference percentile Area 145.60 23.5 131/72 -2017 lbs 0 mm[Hg] 9:55 kg/m AM eter (2) Chief Complaint And Reason For [...] Radiology Order Breast Ultrasound Right Breast Ordered ([id number]) Future Order: Radiology Order Breast Ultrasound Right Breast Ordered ([id number]) Future Order: Radiology Order Diagnostic Mammogram Right Breast- Ordered If indicated ([id number]) Future Order: Radiology Order Breast Ultrasound Right Breast Ordered ([id number]) Future Order: Radiology Order Diagnostic Mammogram Right Breast, Ordered if indicated ([id number]) Date Type Problem Goal Intervention Status Start Date Unknown. 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
--- OUTSIDE RECORDS SUMMARY | 2017-12-20 15:34 | External Medical Summary | Referral Summary ---
:1985 Author Organization [facility] Address [address] [place] [address] JOSE Kaur [id number] Care Team Providers Name Role Phone Omari Terry Primary Care Physician Encounter [facility] [id number] Date(s): 04/28/15 - 04/28/15 [facility] [place] [address] [place] Discharge Diagnosis: Acute URI Discharge Diagnosis: Acute pharyngitis Discharge Diagnosis: GERD (gastroesophageal reflux disease) Discharge Diagnosis: Eye pain Discharge Diagnosis: Atypical chest pain Discharge Disposition: 01-Home or Self Care Attending Physician: Omari Terry MD Admitting Physician: Omari Terry MD Vital Signs Most recent to oldest [Reference Range]: 1 Temperature Tympanic [36.6-38.1 degC] 36.7 degC (04/28/15 2:03 PM) Peripheral Pulse Rate [60-100 bpm] 83 bpm (04/28/15 2:03 PM) Blood Pressure [90-140/60-90 mmHg] 116/62 mmHg (04/28/15 2:03 PM) SpO2 97 % (04/28/15 2:03 PM) Problem List Condition Effective Dates Status [...] sores, # 5 g, 1 Refill(s), Pharmacy: [facility] #[id number] Start Date: 09/08/15 Status: Ordered Results Microbiology Reports TEST:Group A Strep Culture STATUS:Auth (Verified) BODY SITE: SOURCE:Throat COLLECTED DATE/TIME:04/28/15 2:29 PMGroup A Strep CultureNo Group A Strep ( Strep pyogenes) isolated Immunizations Vaccine Date Refusal Reason tetanus/diphth/pertuss (Tdap) [...] Patient Education Author: Omari Terry MD Date: 04/28/15 Family Medicine Heartburn Heartburn is a painful, burning sensation in the chest. It may feel worse in certain positions, such as lying down or bending over. It is caused by stomach acid backing up into the tube that carries catalina d from the mouth down to the stomach (lower esophagus). CAUSES Large meals. Certain foods and drinks. Exercise. Increased acid production. Being overweight or obese. Certain medicines. SYMPTOMS Burning pain in the chest or lower throat. Bitter taste in the mouth. Coughing. DIAGNOSIS If the usual treatments for heartburn do not improve your symptoms, then tests may be done to see if there is another condition present. Possible tests may include: X-rays. Endoscopy. This is when a tube with a light and a camera on the end is used to examine the esophagus and the stomach. A test to measure the amount of acid in the esophagus (pH test). A test to see if the esophagus is working properly (esophageal manometry). Blood, breath, or stool tests to check for bacteria that cause ulcers. TREATMENT Your caregiver may tell you to use certain ejnz-eop-ionwjsg medicines ( antacids, acid reducers) for mild heartburn. Your caregiver may prescribe medicines to decrease the acid in your stomach or protect your stomach lining. Your caregiver may recommend certain diet changes. For severe cases, your caregiver may recommend that the head of your bed be elevated on blocks. (Sleeping with more pillows is not an effective treatment as it only changes the position of your hea d and does not improve the main problem of stomach acid refluxing into the esophagus.) HOME CARE INSTRUCTIONS Take all medicines as directed by your caregiver. Raise the head of your bed by putting blocks under the legs if instructed to by your caregiver. Do not exercise right after eating. Avoid eating 2 or 3 hours before bed. Do not lie down right after eating. Eat small meals throughout the day instead of 3 large meals. Stop smoking if you smoke. Maintain a healthy weight. Identify foods and beverages that make your symptoms worse and avoid them. Foods you may want to avoid include: Peppers. Chocolate. High-fat foods, including fried foods. Spicy foods. Garlic and onions. [place] fruits, including oranges, grapefruit, ed, and limes. Food containing tomatoes or tomato products. Mint. Carbonated drinks, caffeinated drinks, and alcohol. Vinegar. SEEK IMMEDIATE MEDICAL CARE IF: You have severe chest pain that goes down your arm or into your jaw or neck. You feel sweaty, dizzy, or lightheaded. You are short of breath. You vomit blood. You have difficulty or pain with swallowing. You have bloody or black, tarry stools. You have episodes of heartburn more than 3 times a week for more than 2 weeks. MAKE SURE YOU: Understand these instructions. Will watch your condition. Will get help right away if you are not doing well or get worse. Document Released: 02/10/2010 Document Revised: 12/16/2012 Document Reviewed: 03/10/2012 [facility] Patient Information 2015 [employer]app [facility]. This information is not intended to replace advice given to you by your health care provider. Make sure you discuss any questions you have with your health care provider. No follow up information was provided. Extracted from: Title: GERD, URI Author: Omari Terry MD Date: 04/28/15 Impression and Plan Diagnosis Acute pharyngitis (ICD9 462, Discharge, Medical). Acute URI (ICD9 465.9, Discharge, Medical). Atypical chest pain (ICD9 786.59, Discharge, Medical). Eye pain (ICD9 379.91, Discharge, Medical). GERD (gastroesophageal reflux disease) (ICD9 530.81, Discharge, Medical). Thrombocytopenia (ICD9 287.5, Working, Medical). Plan: Take Omeprazole 20 daily for 2 weeks. Take Biotin 30 mcg daily for your nails. Get plenty of rest and sleep., Rapid strep test is negative. No antibiotics are needed at this time. Avoid hormon al contraception., Get a CBC in about 10 days to recheck your platelet count. Followup as needed if not improving over the next 7-10 days.. Orders Orders (Selected) Outpatient Orders InProcess (In Process) Group A Strep Culture: Ordered Office Visit Level 5 Est 34116: Completed Rapid Strep: Discontinued Office Visit Level 4 Est 20228: Future (On Hold) CBC w/ Differential: . Dx/Order Association Plan: Diagnosis: Acute URI Comment: Ordered: Office Visit Level 5 Est [id number]; 04/28/15 16:30:00 CDT, Eye pain | Atypical chest pain | GERD (gastroesophageal reflux disease) | Acute pharyngitis | Thrombocytopenia Diagnosis: Acute pharyngitis Comment: Ordered: Office Visit Level 5 Est [id number]; 04/28/15 16:30:00 CDT, Eye pain | Atypical chest pain | GERD (gastroesophageal reflux disease) | Acute pharyngitis | Thrombocytopenia Discontinued: Office Visit Level 4 Est [id number]; 04/28/15 14:39:00 CDT, Eye pain | GERD (gastroesophageal reflux disease) | Thrombocytopenia | Acute pharyngitis Other status: Rapid Strep; Micro Specimen, Stat collect, 14:30:00 CDT, Once, Stop date 04/28/15 14:30:00 CDT, Nurse Collect Non-Blood , Acute pharyngitis (Completed) Diagnosis: Atypical chest pain Comment: Ordered: Office Visit Level 5 Est [id number]; 04/28/15 16:30:00 CDT, Eye pain | Atypical chest pain | GERD (gastroesophageal reflux disease) | Acute pharyngitis | Thrombocytopenia Diagnosis: Eye pain Comment: Ordered: Office Visit Level 5 Est [id number]; 04/28/15 16:30:00 CDT, Eye pain | Atypical chest pain | GERD (gastroesophageal reflux disease) | Acute pharyngitis | Thrombocytopenia Discontinued: Office Visit Level 4 Est [id number]; 04/28/15 14:39:00 CDT, Eye pain | GERD (gastroesophageal reflux disease) | Thrombocytopenia | Acute pharyngitis Diagnosis: GERD (gastroesophageal reflux disease) Comment: Ordered: Office Visit Level 5 Est [id number]; 04/28/15 16:30:00 CDT, Eye pain | Atypical chest pain | GERD (gastroesophageal reflux disease) | Acute pharyngitis | Thrombocytopenia Discontinued: Office Visit Level 4 Est [id number]; 04/28/15 14:39:00 CDT, Eye pain | GERD (gastroesophageal reflux disease) | Thrombocytopenia | Acute pharyngitis Diagnosis: Thrombocytopenia Comment: Ordered: Office Visit Level 5 Est [id number]; 04/28/15 16:30:00 CDT, Eye pain | Atypical chest pain | GERD (gastroesophageal reflux disease) | Acute pharyngitis | Thrombocytopenia Discontinued: Office Visit Level 4 Est [id number]; 04/28/15 14:39:00 CDT, Eye pain | GERD (gastroesophageal reflux disease) | Thrombocytopenia | Acute pharyngitis Additional Orders: Comment: Future Orders: CBC w/ Differential,Blood, Routine Collect, *Est. 05/08/15 +/- 9 days, Once, Lab Collect, Thrombocytopenia, Order for future visit End of Orders ."
--- OUTSIDE RECORDS SUMMARY | 2017-12-20 15:34 | External Medical Summary | Continuity of Care Document ---
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) w/o abn findings Pap Smear Screening, Cervix Encounter for surveillance of contraceptive pills Complete or unsp spontaneous without complication Matern care for oth or susp poor fetl - gr, 2nd tri, unsp 14 weeks gestation of [...] second trimester 18 weeks gestation of - Initiation of Oral Contraceptives - Active Breast Lump/Mass - Active Active Procedures Procedure Date Unknown Results Test Name Date and Time Measure Units Reference Range Abnormal Flag Comments Unknown Advance Directives Directive Yes / No Effective Date File Name Unknown Encounters Encounter Practice Location Reason(s) Diagnoses Date Provider Care Team Description For Visit Members Rupesh [place] Encounter for Jul- Judd Referring In Womens suprvsn of normal 8-201 Katharina. Provider: Jaspreet ABARCA, , second 7 700 Omari PO Box weeks Medical Mara B, 1522, gestation of [address], , [facility], 120, Center, [id number], [place], [place], [facility], [address]. tel: tel: , . [phone] tel: [phone] Rupesh [place] Matern care for Jul- Judd Referring In Womens Ultrasound oth or susp poor 8-201 Katharina. Provider: ranjan Yap, 2nd 7 700 Omari PO Box tri, unspContact Medical Mara B, 1522, w and exposure to [address], [facility] viral , [facility], communicable 120, Center, [id number], [id number] weeks [place], [place], [address]. tel: [phone] tel: , . [id number] tel: [phone] Rupesh [place] Oct-1 Judd In Womens 6-201 Katharina. Jaspreet ABARCA, 7 700 PO Box Medical 1522, [place] [address], [facility], 120, [id number], [place], tel:[phone] , . tel: [phone] Rupesh [place] Contact w and Sep-2 Judd Referring In Womens exposure to oth 1-201 Katharina. Provider: Jaspreet ABARCA, viral 7 700 [address] PO Box communicable Medical Mara B, 1522, diseases Center [address], , [facility], 120, Center, , [place], [address]. tel:[phone] tel:+ , [place]. [id number] tel: [phone] Rupesh [place] Matern care for Sep- Judd Referring In Womens oth or susp poor 8-201 Katharina. Provider: Jaspreet ABARCA, fetl grth, 2nd 7 700 [address] PO Box tri, unsp14 weeks Medical [facility], 1522, gestation of Center [address] [place], , [facility], 120, Center, , [place], [place], [address]. tel:[phone] tel: , [place]. [id number] tel: [phone] Rupesh [place] Encounter for May- Judd Referring In Womens suprvsn of normal 5-201 Katharina. Provider: Jaspreet ABARCA, , first 7 700 Omari STEVENSON Box trimester9 weeks Medical [facility], 1522, gestation of Center [address] [place] [address], Dr [facility], 120, Center, , [place], [place], [address]. tel:[phone] tel: , [place]. [id number] tel: [phone] Rupesh [place] Encounter for Apr- Judd Referring In Womens suprvsn of normal 1-201 Katharina. Provider: Jaspreet ABARCA, , first 7 700 Omari PO Box trimesterLess Medical [facility] B, 1522, than 8 weeks Center [address], gestation of Dr [facility], 120, Center, [id number], [place], [place], [address]. tel:[phone] tel: , [place]. [id number] tel: [phone] Rupesh [place] Unspecified lump Feb-2 Judd In Womens in breast 4-201 Katharina. Jaspreet ABARCA, 7 700 PO Box Medical 15[address], [address], [facility], 120, [id number], [facility], tel:[phone] , [place]. tel: [phone] [facility] [place] Complete or unsp Feb-2 Judd Referring In Womens spontaneous 0-201 Katharina. Provider: Jaspreet ABARCA, without 7 700 [address] PO Box complication Medical Mara B, 1522, Center [address], [facility], 120, Center, [id number], [place], [facility], [address]. tel:[phone] tel: , US. [id number] tel: [phone] Rupseh [place] Pap Smear Feb-0 Judd Referring In Womens Screening, Cervix 8- [place]. Provider: Jaspreet ABARCA, 7 700 [address] PO Box Medical Mara B, 1522, Center [facility] Dr Pr[address], [facility], 120, Center, [id number], [place], [facility] [place], [address]. tel:[phone] tel: , US. [id number] tel: [phone] Rupesh [place] Unspecified lump Oct-1 Judd Referring In Womens in breast 1-201 Katharina. Provider: Jaspreet ABARCA, 6 700 [address]ari PO Box Medical Mara B, 1522, Center [facility] Dr Prachi, [facility], 120, Center, [id number], [place], [facility], [address]. tel:[phone] tel: , US. [id number] tel: [phone] Rupesh [place] Unspecified lump Sep-0 Judd In Womens in 6-201 Katharina. Jaspreet ABARCA, breastUnspecified 6 700 PO Box lump in breast Medical 15[address], [place] [address], [facility], 120, [id number], [facility], tel:[phone] , [place]. tel: [phone] Rupesh [place] Dysfunctional Feb-2 Judd Referring In Womens Uterine 6-201 Katharina. Provider: Jaspreet ABARCA, BleedingEncntr 6 700 [address]ari PO Box for supervisor extruding department exam Medical Mara B, 1522, (general) Center [address] [place] [address], (routine) w/o abn , [facility] Medical [place], findingsPap Smear 120, [place], [id number], Screening, [place], [place], [address]. tel: for surveillance [phone] tel: of contraceptive , [place]. [id number] pills tel: [phone] Rupesh [place] Unspecified lump Judd In Womens in breast [facility], 6 700 PO [facility] 1522, [facility], , [facility], 120, [id number], [place], tel: [phone] , . tel: [phone] Family History Family Member Diagnosis Age At [...] Insurance type Covered constitution party ID Authorization(s) Aet CI [id number] [facility] CI [id number] Aet[employer] CI [id number] [employer] CI [id number] Social History Type Description Quantity Date Captured Unknown Vital Signs Date / Height Weight BMI Pulse Blood Temperature Respiratory Body Head BMI Time: Rate Pressure Rate Surface Circumference percentile Area Unknown Chief Complaint And Reason For Visit Unknown [...] Radiology Order Breast Ultrasound Right Breast Ordered ([id number]) Future Order: Radiology Order Breast Ultrasound Right Breast Ordered ([id number]) Future Order: Radiology Order Diagnostic Mammogram Right Breast- Ordered If indicated ([id number]) Future Order: Radiology Order Breast Ultrasound Right Breast Ordered ([id number]) Future Order: Radiology Order Diagnostic Mammogram Right Breast, Ordered if indicated ([id number]) Future Order: Radiology Order Complete OB Ultrasound > 14 Ordered Weeks ([id number]) Date Type Problem Goal Intervention Status Start [...]
--- OUTSIDE RECORDS SUMMARY | 2017-12-20 15:34 | External Medical Summary | Continuity of Care Document ---
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 Encounter for Dec-1 Judd Referring In Womens suprvsn of normal 8-201 Katharina. Provider: Jaspreet ABARCA, , second 7 700 [address] PO Box [email or web address] weeks Medical Mara B, 1522, gestation of [address], [address] [facility], 120, [place], [id number], [place], [address]. tel: [phone] tel:[phone] , [place]. [id number] tel: [phone] Rupesh [place] Dec-1 Judd In Womens 1-201 Katharina. Jaspreet ABARCA, 7 700 PO Box Medical [address], [place] [address] [facility], 120, [id number], [facility], tel:[phone] , [place]. tel: [phone] [facility] Encounter for Dec-0 Judd Referring In Womens suprvsn of normal 4-201 Katharina. Provider: Jaspreet ABARCA, , second 7 700 [address] PO Box [email or web address] weeks Medical Mara B, 1522, gestation of [address], [address] [facility], 120, [place], [id number], [place], [facility] [place], [address]. tel:[phone] tel: , . [id number] tel: [phone] Rupesh [place] Encounter for Nov-1 Judd Referring In Womens suprvsn of normal 3-201 Katharina. Provider: Jaspreet ABARCA, , second 7 700 [address] PO Box [email or web address] weeks Medical [facility], 1522, gestation of Center [address] [place], , [facility], 120, Center, [id number], [place], [facility] [place], [address]. tel: tel: , . [phone] tel: [phone] Rupesh [place] Encounter for Oct-1 Judd Referring In Womens suprvsn of normal 8-201 Katharina. Provider: Jaspreet ABARCA, , second 7 700 [address] PO Box [email or web address] weeks Medical [facility] B, 1522, gestation of Center [address] [place] [address], , [facility], 120, [place], , [place], [facility] [place], [address]. tel: tel: , . [phone] tel: [phone] Rupesh [place] Matern care for Oct-1 Judd Referring In Womens Ultrasound oth or susp poor 8-201 Katharina. Provider: Jaspreet ABARCA, fetl grth, 2nd 7 700 [address] PO Box tri, unspContact [facility] B, 1522, w and exposure to Center [address] [place] [address], h viral , [facility], communicable 120, Center, , weeks [place], [place], [address]. tel: [phone] tel: , . [id number] tel: [phone] Rupesh [place] Contact w and Sep-2 Judd Referring In Womens exposure to oth 1-201 Katharina. Provider: Jaspreet ABARCA, viral 7 [address] PO Box communicable Medical [facility] B, 1522, diseases Center [address] [place], , [facility], 120, [place], [id number], [place], [facility] [place], [address]. tel:6 tel: , . [id number] tel: [phone] [facility] Matern care for Jun- Judd Referring In Womens oth or susp poor 8-201 Katharina. Provider: Jaspreet ABARCA, fetl grth, 2nd 7 700 [address] PO Box tri, unsp14 weeks Medical Mara B, 1522, gestation of Center [address] [place], [facility], 120, [place], [id number], [place], [facility] [place], [address]. tel:[phone] tel: , . [id number] tel: [phone] Rupesh [place] Encounter for Judd Referring In Womens suprvsn of normal 5-201 Katharina. Provider: Jaspreet ABARCA, , first 7 700 [address] PO Box trimester9 weeks Medical Mara B, 1522, gestation of [place] [address] [place], [facility], 120, [place], , [place], [facility] [place], [address]. tel:[phone] tel: , . [id number] tel: [phone] Rupesh [place] Encounter for Judd Referring In Womens suprvsn of normal 1-201 Katharina. Provider: Jaspreet ABARCA, , first 7 700 [address] PO Box trimesterLess Medical Mara B, 1522, than 8 weeks Center [address] [place], gestation of [facility], 120, [place], , [place], [facility] [place], [address]. tel:[phone] tel: , . [id number] tel: [phone] Rupesh [place] Unspecified lump Feb-2 Judd In Womens in breast 4-201 Katharina. Jaspreet ABARCA, 7 700 PO Box Medical [address], [address] [facility], 120, [id number], [place], tel: [phone] , . tel: [phone] [facility] Complete or unsp Feb-2 Judd Referring In Womens spontaneous 0-201 Katharina. Provider: Jaspreet ABARCA, without 7 700 [address] PO Box complication Medical [facility], 1522, Center [facility] [address], [facility], 120, Center, [id number], [place], [place], [address]. tel:[phone] tel: , [place]. [id number] tel: [phone] Rupesh [place] Pap Smear Feb-0 Judd Referring In Womens Screening, Cervix Belle. Provider: Jaspreet ABARCA, 7 700 [address] PO Box [facility], 1522, Center [facility] [address], [facility], 120, Center, , [place], [facility] [place], [address]. tel:[phone] tel: , US. [id number] tel: [phone] Rupesh [place] Unspecified lump Oct-1 Judd Referring In Womens in breast Belle. Provider: Jaspreet ABARCA, 6 700 [address] PO Box [facility], 1522, Center [facility] [address], [facility], 120, Center, [id number], [place], [facility] [place], [address]. tel:[phone] tel: , US. [id number] tel: [phone] Rupesh [place] Unspecified lump Sep-0 Judd In Womens in Belle. Jaspreet ABARCA, breastUnspecified 6 700 PO Box lump in breast Medical 1522, [place] [address], [facility], 120, [id number], [place], [place], tel:[phone] , [place]. tel: [phone] Rupesh [place] Dysfunctional Feb-2 Judd Referring In Womens Uterine Belle. 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 tel: for surveillance [phone] tel: of contraceptive , [place]. [id number] pills tel: [phone] Rupesh [place] Unspecified lump Judd In Womens in breast [facility], 6 700 PO Box [facility] 1522, [place] [address], [facility] [place], 120, [id number], [place], tel: [phone] , [place]. tel: [phone] Family History Family Member Diagnosis Age At [...] Covered constitution party ID Authorization(s) [employer] CI [id number] [facility] CI [id number] [employer] CI [id number] [employer] CI [id number] Social History Type Description Quantity Date Captured [...] Radiology Order Breast Ultrasound Right Breast Ordered ([id number]) Future Order: Radiology Order Breast Ultrasound Right Breast Ordered ([id number]) Future Order: Radiology Order Diagnostic Mammogram Right Breast- Ordered If indicated ([id number]) Future Order: Radiology Order Breast Ultrasound Right Breast Ordered ([id number]) Future Order: Radiology Order Diagnostic Mammogram Right Breast, Ordered if indicated ([id number]) Future Order: Radiology Order Complete OB Ultrasound > 14 Ordered Weeks ([id number]) Future Order: Lab Order Hemoglobin ([id number]) Ordered Future Order: Lab Order Hematocrit ([id number]) Ordered Future Order: Lab Order Gest. Diabetes 1-Hr Screen ([id number]) Ordered Date Type Problem Goal Intervention Status [...]
--- OUTSIDE RECORDS SUMMARY | 2017-12-20 15:34 | External Medical Summary | Continuity of Care Document ---
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 Pap Smear Screening, Cervix Encounter for surveillance of contraceptive pills Complete or unsp spontaneous without complication Matern care for oth or susp poor fetl - grth, 2nd tri, unsp 14 weeks gestation of - Encounter for suprvsn of normal - , first trimester 9 weeks gestation of - Initiation of Oral Contraceptives - Active Breast Lump/Mass - Active Active Procedures Procedure Date Antibody, parvovirus Antibody, parvovirus IgG Venpnctr fngr/heel/ear stick routne Results Test Name Date and Time Measure Units Reference Range Abnormal Flag Comments Panel Description: PARVOVIRUS B19 ANTIBODIES (IGG, IGM) PARVOVIRUS B19 ANTIBODY 15:19:00 5.3 H REFERENCE RANGE: &lt ;0.9 (IGG) INTERPRETIVE CRITERIA: <0.9 Negative 0.9 - 1.1 Equivocal >1.1 Positive IgG persists for years and provides life-longimmunity. To diagnose current infection, considerParvovirus B19 DNA, PCR. PARVOVIRUS B19 ANTIBODY 15:19:00 0.5 REFERENCE RANGE: < 0.9 (IGM) INTERPRETIVE CRITERIA: <0.9 Negative 0.9 - 1.1 Equivocal >1.1 Positive Results from any one IgM assay should not be usedas a sole determinant of a current or recentinfection. Because IgM tests can yield falsepositive results and low levels of IgM antibodymay persist for months post infection, reliance soco single test result could be misleading. If anacute infection is suspected, consider obtaininga new specimen and submit for both IgG and IgMtesting in two or more weeks. To diagnose currentinfection, consider Parvovirus B19 DNA, PCR.REPORT COMMENT:FASTING:NOTest performed at [facility], [address] [id number]: Landen FALCON Advance Directives Directive Yes / No Effective Date File Name Unknown Encounters Encounter Practice Location Reason(s) Diagnoses Date Provider Care Team Description For Visit Members [facility] [place] Contact w and Sep- Judd Referring In Womens exposure to oth 1201 Katharina. Provider: [facility], viral communicable 7 700 [address] Box diseases [facility], 1522, Center [address], [facility] Medical [place], 120, Center, [id number], [place], [facility] [place], [address]. tel:[phone] tel:+ [phone] , . [id number] tel: [phone] [facility] care for Sep- Judd Referring In Womens oth or susp poor 8-201 Katharina. Provider: Jaspreet ABARCA, fetl grth, 2nd 7 [address] PO Box tri, unsp14 weeks Medical Mara B, 1522, gestation of Center [address] [place], Dr [facility], 120, Center, [id number], [place], [facility] [place], [address]. tel:[phone] tel: , . [id number] tel: [phone] Rupesh [place] Encounter for Judd Referring In Womens suprvsn of normal 5-201 Katharina. Provider: Jaspreet ABARCA, , first 7 700 [address] PO Box trimester9 weeks Medical Mara B, 1522, gestation of Center [address] [place] [address], Dr [facility], 120, Center, , [place], [facility] [place], [address]. tel:[phone] tel: , . [id number] tel: [phone] Rupesh [place] Encounter for Judd Referring In Womens suprvsn of normal 1-201 Katharina. Provider: Jaspreet ABARCA, , first 7 700 [address]ari PO Box trimesterLess than Medical [facility] B, 1522, 8 weeks gestation Center [address] [place] [address], [address] [facility], 120, Center, , [place], [facility] [place], [address]. tel:[phone] tel: , US. [id number] tel: [phone] Rupesh [place] Unspecified lump Feb-2 Judd In Womens in breast 4-201 Katharina. Jaspreet ABARCA, 7 700 PO Box Medical 1522, [place], Dr, [facility], 120, , [facility], tel:[phone] , . tel: [phone] [facility] Complete or unsp Feb-2 Judd Referring In Womens spontaneous 0-201 Katharina. Provider: Jaspreet ABARCA, without 7 700 Omari PO Box complication Medical Mara B, 1522, Center [address], [facility], 120, Center, [id number], [place], [facility] [place], [address]. tel:[phone] tel: , US. [id number] tel: [phone] Rupesh [place] Pap Smear Feb-0 Judd Referring In Womens Screening, Cervix [place]. Provider: Jaspreet ABARCA, 7 700 [address]ari PO Box Medical [facility], 1522, Center [facility] Dr [address], [facility], 120, Center, , [place], [facility] [place], [address]. tel:[phone] tel: , US. [id number] tel: [phone] Rupesh [place] Unspecified lump Oct- Judd Referring In Womens in breast [place]. Provider: Jaspreet ABARCA, 6 700 [address]ari PO Box Medical [facility], 1522, Center [facility] Dr [address], [facility], 120, [place], , [place], [facility] [place], [address]. tel: tel: , [place]. [id number] tel: [phone] Rupesh [place] Unspecified lump Sep-0 Judd In Womens in [place]. Jaspreet ABARCA, breastUnspecified 6 700 PO Box lump in breast Medical 1522, [place] [address], [facility], 120, , [facility], tel:[phone] , [place]. tel: [phone] Rupesh [place] Dysfunctional Feb-2 Judd Referring In Womens Uterine [place]. 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 tel: of contraceptive tel: pills , [place]. [id number] tel: [phone] Rupesh [place] Unspecified lump Judd In Womens in breast 1201 Katharina. [facility], 6 700 PO [facility] 1522, [place] [address], [facility] [place], 120, [id number], [place], tel:[phone] , [place]. tel: [phone] Family History Family Member Diagnosis Age At [...] Covered green party ID Authorization(s) [employer] CI [id number] [facility] CI [id number] [facility] [id number] Social History Type Description Quantity Date Captured [...] Radiology Order Breast Ultrasound Right Breast Ordered ([id number]) Future Order: Radiology Order Breast Ultrasound Right Breast Ordered ([id number]) Future Order: Radiology Order Diagnostic Mammogram Right Breast- Ordered If indicated ([id number]) Future Order: Radiology Order Breast Ultrasound Right Breast Ordered ([id number]) Future Order: Radiology Order Diagnostic Mammogram Right [...]
--- OUTSIDE RECORDS SUMMARY | 2017-12-20 15:34 | External Medical Summary | Referral Summary ---
:1985 Author Organization [facility], [facility] Address [address] [place] [address] [place] [id number] Care Team Providers Name Role Phone Omari Terry Primary Care Physician Encounter [facility] [id number] Date(s): 12/28/16 - 12/28/16 [facility] [place] [address] [place] [phone] Discharge Diagnosis: Cellulitis of great toe, right Discharge Diagnosis: Ingrown right big toenail Discharge Disposition: 01-Home or Self Care Attending Physician: Omari Terry MD Admitting Physician: Omari Terry MD Vital Signs Most recent to oldest [Reference Range]: 1 Temperature Tympanic [36.6-38.1 degC] 37.0 degC (12/28/16 9:00 AM) Peripheral Pulse Rate [60-100 bpm] 80 bpm (12/28/16 9:00 AM) Blood Pressure [90-140/60-90 mmHg] 106/68 mmHg (12/28/16 9:00 AM) Problem List Condition Effective Dates Status Health Status Informant Abnormal loss of weight(Confirmed) Active 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(Confirmed) Acute bronchitis(Confirmed) Active Acute chest pain(Confirmed) Active Acute gastritis(Confirmed) Active Acute pharyngitis(Confirmed) Active D-dimer, elevated(Confirmed) Active Early satiety(Confirmed) Active med sun exposure and no serious Active sunburns(Confirmed) Fatigue(Confirmed) Active Fever(Confirmed) Active Left foot pain(Confirmed) Active Ingrown toenail(Confirmed) Active Common migraine(Confirmed) Active Nausea(Confirmed) Active Pain around both eyes(Confirmed) Active Thrombocytopenia(Confirmed) Active Acute viral syndrome(Confirmed) Active Allergies, Adverse Reactions, Alerts No Known Medication Allergies Medications cephalexin 500 mg oral capsule 500 mg 1 caps, Oral, QID, X 10 days, # 40 caps, 0 Refill(s), Pharmacy: [facility] #[id number], 1 caps Oral QID,x10 days Start Date: 12/28/16 Stop Date: 01/07/17 Status: Orderedibuprofen as needed for pain, 0 Refill(s) Start Date: 04/28/15 Status: Orderedmultivitamin 1 tablet, Oral, Daily, 0 Refill(s) Start Date: 12/18/16 Status: Orderedmupirocin 2% topical ointment 1 tripp, Topical, TID, X 10 days, # 22 g, 0 Refill(s), Pharmacy: [facility] #[id number] Start Date: 12/22/16 Stop Date: 01/01/17 Status: Ordered Results No data available for this section Immunizations Given and Recorded Vaccine Date Status Refusal Reason tetanus/diphth/pertuss (Tdap) adult/adol 08/17/15 Given tetanus/diphth/pertuss (Tdap) adult/adol 06/30/08 Recorded hepatitis A-hepatitis B vaccine 01/11/09 Recorded hepatitis A-hepatitis B vaccine 11/16/08 Recorded hepatitis A-hepatitis B vaccine 06/30/08 Recorded human papillomavirus vaccine 11/16/08 Recorded influenza virus vaccine, inactivated1 08/04/14 Recorded influenza virus vaccine, live 08/01/13 Given 1Result Comment: [08/04/2014] See scanned document Procedures Procedure Date Related Diagnosis Body Site Mammogram1 12/01/15 Extraction of wisdom tooth 1[facility]. PLAN A F/U US IN 12 MONTHS RECOMMENDED TO CONFIRM STABILITY. Social History Social History Type Response Smoking Status Never smoker Assessment and Plan Extracted from: Title: Ambulatory Patient Education Author: Omari Terry MD Date: 12/28/16 Emergency Medicine Ingrown Toenail An ingrown toenail occurs when the corner or sides of your toenail grow into the surrounding skin. The big toe is most commonly affected, but it can happen to any of your toes. If your ingrown toenail i s not treated, you will be at risk for infection. CAUSES This condition may be caused by: Wearing shoes that are too small or tight. Injury or trauma, such as stubbing your toe or having your toe stepped on. Improper cutting or care of your toenails. Being born with (congenital) nail or foot abnormalities, such as having a nail that is too big for your toe. RISK FACTORS Risk factors for an ingrown toenail include: Age. Your nails tend to thicken as you get older, so ingrown nails are more common in older people. Diabetes. Cutting your toenails incorrectly. Blood circulation problems. SYMPTOMS Symptoms may include: Pain, soreness, or tenderness. Redness. Swelling. Hardening of the skin surrounding the toe. Your ingrown toenail may be infected if there is fluid, pus, or drainage. DIAGNOSIS An ingrown toenail may be diagnosed by medical history and physical exam. If your toenail is infected, your health care provider may test a sample of the drainage. TREATMENT Treatment depends on the severity of your ingrown toenail. Some ingrown toenails may be treated at home. More severe or infected ingrown toenails may require surgery to remove all or part of the nail. I nfected ingrown toenails may also be treated with antibiotic medicines. HOME CARE INSTRUCTIONS If you were prescribed an antibiotic medicine, finish all of it even if you start to feel better. Soak your foot in warm soapy water for 20 minutes, 3 times per day or as directed by your health care provider. Carefully lift the edge of the nail away from the sore skin by wedging a small piece of cotton under the corner of the nail. This may help with the pain. Be careful not to cause more injury to the area. Wear shoes that fit well. If your ingrown toenail is causing you pain, try wearing sandals, if possible. Trim your toenails regularly and carefully. Do not cut them in a curved shape. Cut your toenails straight across. This prevents injury to the skin at the corners of the toenail. Keep your feet clean and dry. If you are having trouble walking and are given crutches by your health care provider, use them as directed. Do not pick at your toenail or try to remove it yourself. Take medicines only as directed by your health care provider. Keep all follow-up visits as directed by your health care provider. This is important. SEEK MEDICAL CARE IF: Your symptoms do not improve with treatment. SEEK IMMEDIATE MEDICAL CARE IF: You have red streaks that start at your foot and go up your leg. You have a fever. You have increased redness, swelling, or pain. You have fluid, blood, or pus coming from your toenail. This information is not intended to replace advice given to you by your health care provider. Make sure you discuss any questions you have with your health care provider. Document Released: 09/21/2001 Document Revised: 02/08/2016 Document Reviewed: 08/18/2015 [employer] Patient Education 2016 [facility] Cellulitis Cellulitis is an infection of the skin and the tissue beneath it. The infected area is usually red and tender. Cellulitis occurs most often in the arms and lower legs. CAUSES Cellulitis is caused by bacteria that enter the skin through cracks or cuts in the skin. The most common types of bacteria that cause cellulitis are staphylococci and streptococci. SIGNS AND SYMPTOMS Redness and warmth. Swelling. Tenderness or pain. Fever. DIAGNOSIS Your health care provider can usually determine what is wrong based on a physical exam. Blood tests may also be done. TREATMENT Treatment usually involves taking an antibiotic medicine. HOME CARE INSTRUCTIONS Take your antibiotic medicine as directed by your health care provider. Finish the antibiotic even if you start to feel better. Keep the infected arm or leg elevated to reduce swelling. Apply a warm cloth to the affected area up to 4 times per day to relieve pain. Take medicines only as directed by your health care provider. Keep all follow-up visits as directed by your health care provider. SEEK MEDICAL CARE IF: You notice red streaks coming from the infected area. Your red area gets larger or turns dark in color. Your bone or joint underneath the infected area becomes painful after the skin has healed. Your infection returns in the same area or another area. You notice a swollen bump in the infected area. You develop new symptoms. You have a fever. SEEK IMMEDIATE MEDICAL CARE IF: You feel very sleepy. You develop vomiting or diarrhea. You have a general ill feeling (malaise) with muscle aches and pains. This information is not intended to replace advice given to you by your health care provider. Make sure you discuss any questions you have with your health care provider. Document Released: 07/04/2006 Document Revised: 06/14/2016 Document Reviewed: 08/02/2016 [employer] Patient Education 2016 [employer] No follow up information was provided. Extracted from: Title: cellulitis right great toe Author: Omari Terry MD Date: 12/28/16 Impression and Plan Diagnosis Cellulitis of great toe, right ([id number] L03.031, Discharge, Medical). Ingrown right big toenail ([id number] L60.0, Discharge, Medical). Plan: 1) Take the Cephalexin as directed. 2) Use the Mupirocin as long as needed. 3) Soak the toe in warm water. 4) Followup as needed, as you may need surgical excision of the nail edges, with permanent removal. 5) Your tetanus status was verified as current.. Orders Orders (Selected) Outpatient Orders Ordered Office Visit Level 4 Est 82280: Prescriptions Prescribed cephalexin 500 mg oral capsule: 500 mg=1 caps, Oral, QID, for 10 days, 40 caps , 0 Refill(s). Dx/Order Association Plan: Diagnosis: Cellulitis of great toe, right Comment: Ordered: Office Visit Level 4 Est 38211; 12/28/16 9:33:00 CDT, Cellulitis of great toe, right | Ingrown right big toenail Diagnosis: Ingrown right big toenail Comment: Ordered: Office Visit Level 4 Est 70000; 12/28/16 9:33:00 CDT, Cellulitis of great toe, right | Ingrown right big toenail Additional Orders: Comment: Ordered: cephalexin 500 mg oral capsule,500 mg 1 caps, Oral, QID, X 10 days, # 40 caps, 0 Refill(s), Pharmacy: [facility] #[id number], 1 caps Oral QID,x10 days End of Orders ."
--- OUTSIDE RECORDS SUMMARY | 2017-12-20 15:34 | External Medical Summary | Continuity of Care Document ---
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 Provider: Jaspreet ABARCA, , second 7 700 Omari [address] [id number] weeks [facility], 1522, gestation of [address], , [facility], [address], [place], , [place], [place], [address]. tel:[phone] tel:[phone] , . [id number] tel: [phone] Rupesh [place] Encounter for Oct-1 Judd Referring In Womens suprvsn of normal 8-201 Katharina. Provider: Jaspreet ABARCA, , second 7 700 Omari [address] [id number] weeks [facility], 1522, gestation of [address], [address] [facility], 120, [place], , [place] [place], [place], [address]. tel:[phone] tel: , . [id number] tel: [phone] Rupesh [place] Matern care for Oct-1 Judd Referring In Womens Ultrasound oth or susp poor 8-201 Katharina. Provider: Jaspreet ABARCA, fetl grth, 2nd 7 700 Omari [address] tri, unspContact Medical Mara B, 1522, w and exposure to [address], oth viral , [facility], communicable 120, [place], , [id number] weeks [place]win [place], [place], [address]. tel: [phone] tel: , . [id number] tel: [phone] Rupesh [place] Contact w and Sep-2 Judd Referring In Womens exposure to oth 1-201 Katharina. Provider: Jaspreet ABARCA, viral 7 700 Omari PO Box communicable Medical [facility], 1522, diseases [address], , [facility], [address], Center, [id number], [place]win [place], [place], [address]. tel:[phone] tel: , [place]. [id number] tel: [phone] Rupesh [place] Matern care for Sep-1 Judd Referring In Womens oth or susp poor 8-201 Katharina. Provider: Jaspreet ABARCA, fetl grth, 2nd 7 700 Omari PO Box tri, [id number] weeks [facility], 1522, gestation of Center [address] [place] [address], Dr [facility], [address], [place], [id number], [place] Christopher, [place], [address]. tel:[phone] tel: , [place]. [id number] tel: [phone] Rupesh [place] Encounter for May- Judd Referring In Womens suprvsn of normal 5-201 Katharina. Provider: Jaspreet ABARCA, , first 7 700 Omari PO Box trimester9 weeks [facility], 1522, gestation of Center [facility] [place], Dr [facility] JOSE, 120, Center, [id number], [place] Christopher, [place], [address]. tel:[phone] tel: , [place]. [id number] tel: [phone] Rupesh [place] Encounter for Apr-3 Judd Referring In Womens suprvsn of normal 1-201 Katharina. Provider: Jaspreet ABARCA, , first 7 700 Omari PO Box trimesterLess Medical Mara B, 1522, than 8 weeks [address], gestation of [place], 120, [place], [id number], [place]win Christopher, [place], [address]. tel:[phone] tel: , [place]. [id number] tel: [phone] Rupesh [place] Unspecified lump Feb-2 Judd In Womens in breast 4- [place]. Jaspreet ABARCA, 7 700 [facility] Medical [address], [place] [address] [place], [facility] [place], 120, [id number], [place], [place], tel:[phone] , [place]. tel: [phone] Rupesh [place] Complete or unsp Feb-2 Judd Referring In Womens spontaneous 0-201 [place]e. Provider: Jaspreet ABARCA, [facility], 1522, Center [facility] [address] [place], [facility], 120, Center, [id number], Ashwin Christopher, [place], [address]. tel:[phone] tel: , [place]. [id number] tel: [phone] Rupesh [place] Pap Smear Feb-0 Judd Referring In Womens Screening, Cervix 8 [place]. Provider: Jaspreet ABARCA, 7 700 [facility], 1522, Center [facility] [address], [facility], 120, Center, [id number], [place]win Christopher, [place], [address]. tel:[phone] tel: , [place]. [id number] tel: [phone] Rupseh [place] Unspecified lump Oct-1 Judd Referring In Womens in breast - [place]. Provider: Jaspreet ABARCA, 6 700 Omari [facility] B, 1522, Center [facility] [address], [facility], 120, Center, [id number], [place]win Christopher, [place], [address]. tel:[phone] tel: , [place]. [id number] tel: [phone] Rupesh [place] Unspecified lump Sep-0 Judd In Womens in 6- [place]. Jaspreet ABARCA, breastUnspecified 6 700 PO Box lump in breast Medical [address], [place] [address] [place], [facility] [place], 120, , [facility] [place], tel: [phone] , . tel: [phone] [facility] Dysfunctional b-2 Judd Referring In Womens Uterine Katharina. Provider: Raul Yap 6 700 Omari PO Box for product strategy director exam Medical Mara B, 1522, (general) [address], (routine) w/o abn , [facility] Medical [place], findingsPap Smear 120, [place], [id number], Screening, [place], [place], [address]. tel: for surveillance tel: of contraceptive , [place]. [id number] pills tel: [phone] [facility] Unspecified lump b-1 Judd In Womens in breast Katharina. Jaspreet ABARCA, 6 700 PO Box Medical [address], [place] [address] [place], , [place], 120, , [facility] [place], tel: [phone] , . tel: [phone] Family History Family Member Diagnosis Age At [...] Covered constitution party ID Authorization(s) [employer] CI [id number] [facility] CI [id number] [employer] CI [id number] [employer] CI [id number] Social History Type Description Quantity Date Captured Alcohol Use Details Caffeine Use Details combo occasional per day Tobacco Use Status Never smoked tobacco Smoking Status Never smoker Vital Signs Date / Height Weight BMI Pulse Blood Temperature Respiratory Body Head BMI Time: Rate Pressure Rate Surface Circumference percentile Area 150.10 24.2 118/70 2017 lbs 2 mm[Hg] 3:34 kg/m PM eter (2) 9 3:33 kg/m PM eter (2) Chief Complaint And Reason For Visit Unknown Chief Complaint And Reason For Visit Reason For Referral Reason For Referral Unknown Plan Of Care Date Type Action Status Appointment Margarita Smith Ready for Provider Appointment Margarita Smith BOOKED Appointment Margarita Smith BOOKED Appointment Margarita Smith BOOKED Appointment Margarita Smith BOOKED Appointment Margarita Smith BOOKED Appointment Margarita Smith BOOKED Appointment Margarita Smith BOOKED Appointment Margairta Smith BOOKED Appointment Margarita Smith BOOKED Future Order: Radiology Breast Ultrasound Right Ordered Order Breast ([id number]) Future Order: Radiology Breast Ultrasound Right Ordered Order Breast ([id number]) Future Order: Radiology Diagnostic Mammogram Right Ordered Order Breast- If indicated ([id number]) Future Order: Radiology Breast Ultrasound Right Ordered Order Breast ([id number]) Future Order: Radiology Diagnostic Mammogram Right Ordered Order Breast, if indicated ([id number]) Future Order: Radiology Complete OB Ultrasound Ordered Order > 14 Weeks ([id number]) Date Type Problem Goal Intervention Status Start [...]
--- OUTSIDE RECORDS SUMMARY | 2017-12-20 15:35 | External Medical Summary | Referral Summary ---
:1985 Author Organization [facility] Conteh, [place] [facility] Address [address] [place] [address] [place] Kaur [id number] Care Team Providers Name Role Phone Omari Terry Primary Care Physician Encounter VC Date(s): 09/08/15 - 09/08/15 [facility] Conteh [place] [address] [place] [address]- [place] Discharge Disposition: 01-Home or Self Care Attending Physician: Omari Terry MD Admitting Physician: Omari Terry MD Vital Signs Most recent to oldest [Reference Range]: 1 Temperature Tympanic [36.6-38.1 degC] 37.7 degC (09/08/15 10:58 AM) Peripheral Pulse Rate [60-100 bpm] 108 bpm *HI* (09/08/15 10:58 AM) Respiratory Rate [14-20 br/min] 16 br/min (09/08/15 10:58 AM) Blood Pressure [90-140/60-90 mmHg] 118/74 mmHg (09/08/15 10:58 AM) SpO2 98 % (09/08/15 10:58 AM) Problem List Condition Effective Dates Status [...] sores, # 5 g, 1 Refill(s), Pharmacy: [facility] #[id number] Start Date: 09/08/15 Status: Ordered Results No [...] Patient Education Author: Omari Terry MD Date: 09/08/15 Family Medicine Canker Sores Canker sores are painful, open sores on the inside of the mouth and cheek. They may be white or yellow. The sores usually heal in 1 to 2 weeks. Women are more likely than men to have recurrent canker sores. CAUSES The cause of canker sores is not well understood. More than one cause is likely. Canker sores do not appear to be caused by certain types of germs ( viruses or bacteria). Canker sores may be caused by: An allergic reaction to certain foods. Digestive problems. Not having enough vitamin B12, folic acid, and iron. Female sex hormones. Sores may come only during certain phases of a menstrual cycle. Often, there is improvement during . Genetics. Some people seem to inherit canker sore problems. Emotional stress and injuries to the mouth may trigger outbreaks, but not cause them. DIAGNOSIS Canker sores are diagnosed by exam. TREATMENT Patients who have frequent bouts of canker sores may have cultures taken of the sores, blood tests, or allergy tests. This helps determine if their sores are caused by a poor diet, an allergy, or some other preventable or treatable disease. Vitamins may prevent recurrences or reduce the severity of canker sores in people with poor nutrition. Numbing ointments can relieve pain. These are available in drug stores without a prescription. Anti-inflammatory steroid mouth rinses or gels may be prescribed by your caregiver for severe sores. Oral steroids may be prescribed if you have severe, recurrent canker sores. These strong medicines can cause many side effects and should be used only under the close direction of a dentist or physician. Mouth rinses containing the antibiotic medicine may be prescribed. They may lessen symptoms and speed healing. Healing usually happens in about 1 or 2 weeks with or without treatment. Certain antibiotic mouth rinses given to women and young children can permanently stain teeth. Talk to your caregiver about your treatment. HOME CARE INSTRUCTIONS Avoid foods that cause canker sores for you. Avoid citrus juices, spicy or salty foods, and coffee until the sores are healed. Use a soft-bristled toothbrush. Chew your food carefully to avoid biting your cheek. Apply topical numbing medicine to the sore to help relieve pain. Apply a thin paste of baking soda and water to the sore to help heal the sore. Only use mouth rinses or medicines for pain or discomfort as directed by your caregiver. SEEK MEDICAL CARE IF: Your symptoms are not better in 1 week. Your sores are still present after 2 weeks. Your sores are very painful. You have trouble breathing or swallowing. Your sores come back frequently. Document Released: 01/19/2012 Document Revised: 01/19/2014 Document Reviewed: 01/19/2012 [facility] Patient Information 2015 [place], [facility]. This information is not intended to replace advice given to you by your health care provider. Make sure you discuss any questions you have with your health care provider. Cervical Adenitis You have a swollen lymph gland in your neck. This commonly happens with Strep and virus infections, dental problems, insect bites, and injuries about the face , scalp, or neck. The lymph glands swell as the body fights the infection or heals the injury. Swelling and firmness typically lasts for several weeks after the infection or injury is healed. Rarely lymph glands can become swollen because of cancer or TB. Antibiotics are prescribed if there is evidence of an infection. Sometimes an infected lymph gland becomes filled with pus. This condition may require opening up the abscessed gland by draining it surgi jose. Most of the time infected glands return to normal within two weeks. Do not poke or squeeze the swollen lymph nodes. That may keep them from shrinking back to their normal size. If the lymph gland is still swollen after 2 weeks, further medical evaluation is needed. SEEK IMMEDIATE MEDICAL CARE IF: You have difficulty swallowing or breathing, increased swelling, severe pain, or a high fever. Document Released: 09/24/2006 Document Revised: 12/16/2012 Document Reviewed: 03/15/2008 [facility] Patient Information 2015 [employer]. This information is not intended to replace advice given to you by your health care provider. Make sure you discuss any questions you have with your health care provider. No follow up information was provided. Extracted from: Title: aphthous stomatitis, cervical Author: Omari Terry MD Date: adenitis Impression and Plan Diagnosis Aphthous stomatitis (OQO56-OB K12.0, Working, Medical). Acute cervical adenitis (NYU11-DB L04.0, Working, Medical). Plan: 1) use the Triamcinolone as needed. 2) May try Alum powder cautery to the oral ulcers. 3) May continue your Oragel as needed. 4) Rest at home for a couple of days. 5) No change to your routine meds. Antibiotics are not needed at this time. 6) Followup as needed.. Orders Orders (Selected) Outpatient Orders Ordered Office Visit Level 4 Est 19890: Prescriptions Prescribed triamcinolone 0.1% mucous membrane paste: 1 tripp, Oral, TID, PRN: as needed for mouth sores, 5 g, 1 Refill(s). 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
--- OUTSIDE RECORDS SUMMARY | 2017-12-20 15:35 | External Medical Summary | Continuity of Care Document ---
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 Provider: Jaspreet ABARCA, , second 7 700 Omari [address] [id number] weeks Medical [facility], 152, gestation of [place] [address] [place], , [facility], 120, [place], , [place], [place], [address]. tel:[phone] tel: , . [id number] tel: [phone] Rupesh [place] Matern care for Judd Referring In Womens Ultrasound oth or susp poor Katharina. Provider: Jaspreet ABARCA, fetl grth, 2nd 7 700 Omari PO Box tri, unspContact Medical [facility], 152, w and exposure to Center [address] [place] [address], [facility] viral , [facility], communicable 120, Center, , [id number] weeks [place], [place], [address]. tel: [phone] tel:[phone] , . [id number] tel: [phone] Rupesh [place] Contact w and Judd Referring In Womens exposure to oth Katharina. Provider: Jaspreet ABARCA, viral 7 700 Omari PO Box communicable Medical Mara B, 1522, diseases Center [address], [facility], 120, [place], [id number], [place], [place], [address]. tel:[phone] tel: , [place]. [id number] tel: [phone] [facility] [place] Matern care for Sep- Judd Referring In Womens oth or susp poor 8-201 Katharina. Provider: Jaspreet ABARCA, fetl grth, 2nd 7 700 Omari PO Box tri, unsp14 weeks Medical [facility], 1522, gestation of [place] [address], Dr [facility], 120, [place], [id number], [place], [place], [address]. tel:[phone] tel: , [place]. [id number] tel: [phone] Rupesh [place] Encounter for Judd Referring In Womens suprvsn of normal 5- Katharina. Provider: Jaspreet ABARCA, , first 7 700 Omari PO Box trimester9 weeks Medical [facility], 1522, gestation of Center [address] [place] [address], Dr [facility], 120, [place], [id number], [place], [place], [address]. tel:[phone] tel: , [place]. [id number] tel: [phone] Rupesh [place] Encounter for Apr- Judd Referring In Womens suprvsn of normal - Katharina. Provider: Jaspreet ABARCA, , first 7 700 Omari PO Box trimesterLess Medical [facility], 1522, than 8 weeks Center [address], gestation of Dr [facility], 120, [place], , [place], [place], [address]. tel:[phone] tel: , [place]. [id number] tel: [phone] Rupesh [place] Unspecified lump Feb-2 Judd In Womens in breast 4- Katharina. Jaspreet ABARCA, 7 700 PO Box Medical 1522, [place] [address], [place], 120, [id number], [place], [place], tel:[phone] , [place]. tel: [phone] [facility] Complete or unsp Feb-2 Judd Referring In Womens spontaneous 0-201 [place]. Provider: Jaspreet ABARCA, without 7 700 Omari PO Box complication Medical Mara B, 1522, Center [address], [facility], 120, Center, [id number], [place], [place], [address]. tel:[phone] tel:+ , [place]. [id number] tel: [phone] Rupesh [place] Pap Smear Feb-0 Judd Referring In Womens Screening, Cervix 8- [place]. Provider: Jaspreet ABARCA, 7 700 Omari PO Box Medical Mara B, 1522, Center [facility] [address], [facility], 120, Center, , [place], [place], [address]. tel:[phone] tel:+ , [place]. [id number] tel: [phone] Rupesh [place] Unspecified lump Oct-1 Judd Referring In Womens in breast - [place]. Provider: Jaspreet ABARCA, 6 700 Omari PO Box Medical Mara B, 1522, Center [facility] [address], [facility], 120, [place], , [place], [place], [address]. tel:[phone] tel: , [place]. [id number] tel: [phone] Rupesh [place] Unspecified lump Sep-0 Judd In Womens in [place]. Jaspreet ABARCA, breastUnspecified 6 700 PO Box lump in breast Medical 1522, [address], [facility], 120, [id number], [place], [place], tel:[phone] , [place]. tel: [phone] Rupesh [place] Dysfunctional Feb-2 Judd Referring In Womens Uterine [place]. Provider: Jaspreet ABARCA, BleedingEncntr 6 700 Omari PO Box for traffic control specialist exam Medical Mara B, 1522, (general) Center [facility] [address], (routine) w/o abn , [facility], findingsPap Smear 120, Center, [id number], Screening, [place], [place], [address]. tel: for surveillance [phone] tel: of contraceptive , [place]. [id number] pills tel: [phone] Rupesh [place] Unspecified lump Judd In Womens in breast 1201 Katharina. [facility], 6 700 PO Box Medical 1522, [place] [address], [facility] [place], 120, [id number], [facility], tel: [phone] , . tel: [phone] Family History Family Member Diagnosis Age At [...] Covered green party ID Authorization(s) [employer] CI [id number] [facility] CI [id number] [employer] CI [id number] [employer] CI [id number] Social History Type Description Quantity Date Captured Alcohol Use Details Caffeine Use Details Unknown Tobacco Use Status Unknown Smoking Status Never smoker Vital Signs Date / Height Weight BMI Pulse Blood Temperature Respiratory Body Head BMI Time: Rate Pressure Rate Surface Circumference percentile Area 146.20 23.5 /65 lbs 9 mm[Hg] 4:22 kg/m PM eter (2) Chief Complaint And [...] Radiology Order Breast Ultrasound Right Breast Ordered ([id number]) Future Order: Radiology Order Breast Ultrasound Right Breast Ordered ([id number]) Future Order: Radiology Order Diagnostic Mammogram Right Breast- Ordered If indicated ([id number]) Future Order: Radiology Order Breast Ultrasound Right Breast Ordered ([id number]) Future Order: Radiology Order Diagnostic Mammogram Right Breast, Ordered if indicated ([id number]) Future Order: Radiology Order Complete OB Ultrasound > 14 Ordered Weeks ([id number]) Date Type Problem Goal Intervention Status Start [...]
--- OUTSIDE RECORDS SUMMARY | 2017-12-20 15:35 | External Medical Summary | Continuity of Care Document ---
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 tel:[phone] tel: , [place]. [id number] tel: [phone] Rupesh [place] Encounter for Judd Referring In Womens suprvsn of normal 1-201 Katharina. Provider: Jaspreet ABARCA, , first 7 700 Omari PO Box trimesterLess than Medical Mara B, 1522, 8 weeks gestation Center [address] [place] [address], of , [facility], 120, [place], , [place], [place], [address]. tel:[phone] tel: , . [id number] tel: [phone] Rupesh [place] Unspecified lump Feb-2 Judd In Womens in breast 4-201 Katharina. Jaspreet ABARCA, 7 700 PO Box Medical [address], [place] [address], [facility], 120, [id number], [place], [place], tel:[phone] , [place]. tel: [phone] Rupesh [place] Complete or unsp Feb-2 Judd Referring In Womens spontaneous 0-201 Katharina. Provider: Jaspreet ABARCA, without 7 700 Omari PO Box complication Medical Mara B, 1522, Center [facility] [address], [facility], 120, [place], [id number], [place], [place], [address]. tel:[phone] tel: , . [id number] tel: [phone] Rupesh [place] Pap Smear Feb-0 Judd Referring In Womens Screening, Cervix 8-201 Katharina. Provider: Jaspreet ABARCA, 7 700 Omari PO Box Medical Mara B, 1522, Center [address], [facility], 120, Center, [id number], [place], [place], [address]. tel:[phone] tel: , [place]. [id number] tel: [phone] [facility] [place] Unspecified lump Oct-1 Judd Referring In Womens in breast [place]. Provider: Jaspreet ABARCA, 6 700 Omari PO Box [facility], 1522, Center [facility] [address], [facility], 120, Center, , [place], [place], [address]. tel:[phone] tel: , [place]. [id number] tel: [phone] [facility] [place] Unspecified lump Sep-0 Judd In Womens in [place]. Jaspreet ABARCA, breastUnspecified 6 700 PO Box lump in breast Medical 15[address], [place] [address], [facility], 120, , [facility], tel:[phone] , [place]. tel: [phone] [facility] Dysfunctional Feb-2 Judd Referring In Womens Uterine [place]. 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 tel: of contraceptive [phone] tel: pills , [place]. [id number] tel: [phone] [facility] Unspecified lump Feb-1 Judd In Womens in breast [place]. Jaspreet ABARCA, 6 700 PO Box Medical [address], [place] [address], [facility], 120, , [place], [place], tel:[phone] , [place]. tel: [phone] Family History Family Member Diagnosis Age At [...] Covered green party ID Authorization(s) [employer] CI [id number] [facility] CI [id number] [employer] CI [id number] Social History Type Description Quantity Date Captured Alcohol Use Details Caffeine Use Details Unknown Tobacco Use Status Unknown Smoking Status Never smoker Vital Signs Date / Height Weight BMI Pulse Blood Temperature Respiratory Body Head BMI Time: Rate Pressure Rate Surface Circumference percentile Area 146.70 23.6 lbs 8 mm[Hg] 1:55 kg/m PM eter (2) 8 4:48 kg/m PM eter (2) 0.00 in 146.70 23.6 76 lbs 8 /min mm[Hg] 4:02 kg/m PM eter (2) Chief Complaint And Reason For Visit Unknown Chief Complaint And Reason For Visit Reason For Referral Reason For Referral Unknown Plan Of Care Date Type Action Status Margarita Ross BOOKED Appointment Margarita Smith BOOKED Margarita Ross BOOKED Margarita Ross BOOKED Margarita Ross BOOKED Margarita Ross BOOKED Margarita Ross BOOKED Margarita Ross BOOKED Margarita Ross BOOKED Margarita Ross BOOKED Appointment Margarita Smith BOOKED Appointment Margarita Smith BOOKED Appointment Margarita Smith BOOKED Appointment Margarita Smith BOOKED Appointment Margarita Smith BOOKED Appointment Margarita Smith BOOKED Appointment Margarita Smith BOOKED Future Order: Radiology Order Breast Ultrasound Right Breast Ordered ([id number]) Future Order: Radiology Order Breast Ultrasound Right Breast Ordered ([id number]) Future Order: Radiology Order Diagnostic Mammogram Right Breast- Ordered If indicated ([id number]) Future Order: Radiology Order Breast Ultrasound Right Breast Ordered ([id number]) Future Order: Radiology Order Diagnostic Mammogram Right [...] genetic testing Zika virus assessment & precautions new ob handbook anticipated course of care nutrition and weight gain counseling, special diet toxoplasmosis precautions (cats / raw meat) exercise indications for ultrasound HIV and other routine tests risk factors identified by history influenza vaccine 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
--- OUTSIDE RECORDS SUMMARY | 2017-12-20 15:35 | External Medical Summary | Continuity of Care Document ---
:1985 Author Organization [facility] Address [address] [place], [place] [id number] Phone Care Team Providers Name Role Phone Omari Terry MD Unavailable Allergies, Adverse Reactions, Alerts Substance Reaction Severity Status No Known Drug Allergies Unknown Active Medications Medication Instructions Dosage Effective Dates Status Comments (start - stop) KERYDIN (unknown apply by topical - Active strength) route every day to affected toenail(s) multivitamin take 1 capsule by Not Available - Active capsule oral route every day amoxicillin 500 mg take 1 capsule by - No Longer capsule oral route every Active 12 hours Problems Condition Effective Dates (start - stop) Clinical Status Encounter for suprvsn of normal - , third trimester 29 weeks gestation of - Pap Smear Screening, Cervix - Encounter for suprvsn of normal - , first trimester Less than 8 weeks gestation of - Unspecified lump in breast Unspecified lump in breast Unspecified lump in breast Unspecified lump in breast Unspecified lump in breast Dysfunctional Uterine Bleeding 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 Provider: Jaspreet [place], , third 8 700 Omari [address] [email or web address] weeks Medical [facility], 1522, gestation of [address], [facility] Dr [facility], 120, [place], [id number], Ashwin [place], [facility] [place], [address]. tel:[phone] tel: [phone] , . [id number] tel: [phone] Rupesh [place] Encounter for Judd Referring In Womens suprvsn of normal 2-201 Katharina. Provider: Jaspreet [place], , third 8 700 Omari [address] [email or web address] weeks Medical [facility], 1522, gestation of Center [address] [place], [place] [address]ta, Dr [facility], 120, [place], [id number], [place], [address]. tel:[phone] tel: , . [id number] tel: [phone] [place] Encounter for Dec-1 Judd Referring In Womens suprvsn of normal 8-201 Katharina. Provider: Health [facility]IM[facility], , second 7 700 Omari [address] [email or web address] weeks Medical [facility], 1522, gestation of Center [address], , [facility], 120, Center, [id number], [place]win [place], [facility] [place], [address]. tel:[phone] tel: , . [phone] tel: [phone] [place] Encounter for Dec-0 Judd Referring In Womens suprvsn of normal 4-201 Katharina. Provider: Jaspreet ABARCA, , second 7 700 Omari [address] [email or web address] weeks Medical [facility], 1522, gestation of Center [address] [place] [address], , [facility], 120, Center, [id number], [place], [facility] [place], [address]. tel:[phone] tel: , . [phone] tel: [phone] Rupesh [place] Encounter for Nov-1 Judd Referring In Womens suprvsn of normal 3-201 Katharina. Provider: Jaspreet ABARCA, , second 7 700 Omari [address] [email or web address] weeks Medical [facility], 1522, gestation of Center [address] [place] [address], , [facility], 120, Center, [id number], [place], [facility] [place], [address]. tel:[phone] tel: , . [id number] tel: [phone] Rupesh [place] Encounter for Oct-1 Judd Referring In Womens suprvsn of normal 8-201 Katharina. Provider: Health RIMA, , second 7 700 Omari [address] [id number] weeks Medical [facility], 1522, gestation of Center [address], , [facility], 120, [place], [id number], Ashwin [place], [facility] [place], [address]. tel:[phone] tel: , . [id number] tel: [phone] Rupesh [place] Matern care for Oct-1 Judd Referring In Womens Ultrasound oth or susp poor 8-201 Katharina. Provider: ranjan Yap, 2nd 7 700 Omari PO Box tri, unspContact Medical Mara B, 1522, w and exposure to Center [address], oth viral , [facility], communicable 120, Center, [id number], [email or web address] weeks [place], [place], [address]. tel: [phone] tel: , [place]. [id number] tel: [phone] Rupesh [place] Contact w and Sep-2 Judd Referring In Womens exposure to oth 1-201 Katharina. Provider: Jaspreet ABARCA, viral 7 700 Omari PO Box communicable Medical [facility], 1522, diseases Center [address], , [facility], 120, Center, [id number], [place], [facility] [place], [address]. tel:[phone] tel: , . [phone] tel: [phone] [place] Matern care for Sep-1 Judd Referring In Womens oth or susp poor 8-201 Katharina. Provider: ranjan Yap, 2nd 7 700 Omari PO Box tri, [email or web address] weeks Medical Mara B, 1522, gestation of Center [address], Dr [facility], 120, Center, [id number], [place], [facility] [place], [address]. tel:[phone] tel: , [place]. [id number] tel: [phone] Rupesh [place] Encounter for Aug- Judd Referring In Womens suprvsn of normal 5-201 Katharina. Provider: Jaspreet ABARCA, , first 7 700 Omari PO Box [email or web address] weeks Medical [facility], 1522, gestation of Center [address], , [facility], 120, Center, [id number], [place], [facility] [place], [address]. tel:[phone] tel: , [place]. [id number] tel: [phone] Rupesh [place] Encounter for Apr- Judd Referring In Womens suprvsn of normal 1-201 Katharina. Provider: Jaspreet ABARCA, , first 7 700 Omari Smith trimesterLess Medical Mara B, 1522, than [address] [facility] [place], gestation of , [facility], 120, Center, [id number], [place], [place], [address]. tel:[phone] tel: , [place]. [id number] tel: [phone] Rupesh [place] Unspecified lump Feb-2 Judd In Womens in breast 4-201 Katharina. Jaspreet ABARCA, 7 700 ELVA [facility], [place] [address] Prachi, [facility], 120, [id number], [place], [place], tel: , [place]. tel: [phone] Rupesh [place] Complete or unsp Feb-2 Judd Referring In Womens spontaneous 0-201 Katharina. Provider: Jaspreet ABARCA, without [address] [facility], 1522, Center [facility] Dr Prachi, [facility], 120, Center, [id number], [place], [place], [address]. tel:[phone] tel: , [place]. [id number] tel: [phone] Rupesh [place] Pap Smear Feb-0 Judd Referring In Womens Screening, Cervix 8-201 Katharina. Provider: Jaspreet ABARCA, [address] [facility], 1522, Center [facility] [address] Prachi, [facility], 120, Center, [id number], [place], [place], [address]. tel:[phone] tel: , [place]. [id number] tel: [phone] Rupesh [place] Unspecified lump Oct-1 Judd Referring In Womens in breast 1-201 Katharina. Provider: Jaspreet ABARCA, 6 700 Omari Smith [facility] Mara B, 1522, Center [facility] [address] Prachi, [facility], 120, [place], , Ashwin [facility] [place], [address]. tel:[phone] tel: , . [phone] tel: [phone] [facility] Unspecified lump Sep-0 Judd In Womens in [place]. Jaspreet ABARCA, breastUnspecified 6 700 PO Box lump in breast Medical 1522, [place] [address] Prachi, [facility] [place], 120, [id number], [facility] [place], tel:[phone] , . tel: [phone] [facility] Dysfunctional Feb-2 Judd Referring In Womens Uterine [place]. 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 tel: for surveillance [phone] tel: of contraceptive , [place]. [id number] pills tel: [phone] Rupesh [place] Unspecified lump Feb-1 Judd In Womens in breast [place]. Jaspreet ABARCA, 6 700 PO Box Medical 15[address], [place] [address] Prachi, [facility] [place], 120, , [facility] [place], tel:[phone] , . tel: [phone] Family History Family Member Diagnosis Age At [...] Diabetes mellitus Immunizations Vaccine Date Status Comments Tdap completed Source: New Immunization Record Influenza, injectable, completed Source: New Immunization Record quadrivalent, preservative free, 3 yrs or older Influenza, injectable, completed Source: New Immunization Record quadrivalent, preservative free, 3 yrs or older Payers Payer name Insurance type Covered constitution party ID Authorization(s) [employer] CI [id number] [facility] CI [id number] [employer] CI [id number] [employer] CI [id number] [employer] CI [id number] Social History Type Description Quantity Date Captured Alcohol Use Details Caffeine Use Details Unknown Tobacco Use Status Unknown Smoking Status Never smoker Vital Signs Date / Height Weight BMI Pulse Blood Temperature Respiratory Body Head BMI Time: Rate Pressure Rate Surface Circumference percentile Area 153.00 24.6 122/79 2018 lbs 9 mm[Hg] 4:51 kg/m PM eter (2) Chief Complaint And [...] Radiology Order Breast Ultrasound Right Breast Ordered ([id number]) Future Order: Radiology Order Breast Ultrasound Right Breast Ordered ([id number]) Future Order: Radiology Order Diagnostic Mammogram Right Breast- Ordered If indicated ([id number]) Future Order: Radiology Order Breast Ultrasound Right Breast Ordered ([id number]) Future Order: Radiology Order Diagnostic Mammogram Right Breast, Ordered if indicated ([id number]) Future Order: Radiology Order Complete OB Ultrasound > 14 Ordered Weeks ([id number]) Future Order: Lab Order Hemoglobin ([id number]) Ordered Future Order: Lab Order Hematocrit ([id number]) Ordered Future Order: Lab Order Gest. Diabetes 1-Hr Screen ([id number]) Ordered Date Type Problem Goal Intervention Status [...]
--- OUTSIDE RECORDS SUMMARY | 2017-12-20 15:35 | External Medical Summary | Referral Summary ---
:1985 Author Organization [facility] Address [address] [place] [address] JOSE Kaur [address] Care Team Providers Name Role Phone Omari Terry Primary Care Physician Encounter VC Date(s): 09/09/15 - 09/09/15 [facility] [place] [address] [place] [phone] [place] Discharge Disposition: 01-Home or Self Care Attending Physician: Omari Terry MD Admitting Physician: Omari Terry MD Vital Signs Most recent to oldest [Reference Range]: 1 Temperature Tympanic [36.6-38.1 degC] 37 degC (09/09/15 12:47 PM) Peripheral Pulse Rate [60-100 bpm] 102 bpm *HI* (09/09/15 12:47 PM) Respiratory Rate [14-20 br/min] 16 br/min (09/09/15 12:47 PM) Blood Pressure [90-140/60-90 mmHg] 120/78 mmHg (09/09/15 12:47 PM) SpO2 99 % (09/09/15 12:47 PM) Problem List Condition Effective Dates Status [...] sores, # 5 g, 1 Refill(s), Pharmacy: [facility] #[id number] Start Date: 09/08/15 Status: Ordered Results Hematology Most recent to oldest [Reference Range]: 1 WBC [4.8-10.8 10*3/uL] 7.9 10*3/uL (09/09/15 1:39 PM) RBC [4.00-5.20] 4.81 (09/09/15 1:39 PM) Hgb [12.0-16.0 gm/dL] 13.6 gm/dL (09/09/15 1:39 PM) Hct [37.0-47.0 %] 40.2 % (09/09/15 1:39 PM) MCV [82.0-99.0 fL] 83.6 fL (09/09/15 1:39 PM) MCH [27.0-32.0 pg] 28.3 pg (09/09/15 1:39 PM) MCHC [32.0-36.0 gm/dL] 33.8 gm/dL (09/09/15 1:39 PM) RDW [11.5-14.5 %] 12.6 % (09/09/15 1:39 PM) Platelet [150-400 10*3/uL] 224 10*3/uL (09/09/15 1:39 PM) MPV [8.8-14.8 fL] 10.4 fL (09/09/15 1:39 PM) Immature Granulocytes [0.0-1.0 %] 0.1 % (09/09/15 1:39 PM) Neutrophils [51-75 %] 80 % *HI* (09/09/15 1:39 PM) Lymphocytes [20-46 %] 14 % *LOW* (09/09/15 1:39 PM) Monocytes [4-11 %] 5 % (09/09/15 1:39 PM) Eosinophils [0-4 %] 1 % (09/09/15 1:39 PM) Basophils [0-2 %] 0 % (09/09/15 1:39 PM) Neutro Absolute [1.90-7.00 10*3] 6.31 10*3 (09/09/15 1:39 PM) Lymph Absolute [0.80-3.30 10*3] 1.06 10*3 (09/09/15 1:39 PM) [place] Absolute [0.30-1.00 10*3] 0.42 10*3 (09/09/15 1:39 PM) Eos Absolute [0.00-0.50 10*3] 0.04 10*3 (09/09/15 1:39 PM) Baso Absolute [0.00-0.20 10*3] 0.03 10*3 (09/09/15 1:39 PM) Chemistry Most recent to oldest [Reference Range]: 1 Sodium Lvl [135-144 mEq/L] 140 mEq/L (09/09/15 1:39 PM) Potassium Lvl [3.5-5.2 mEq/L] 3.7 mEq/L (09/09/15 1:39 PM) Chloride [99-111 mEq/L] 106 mEq/L (09/09/15 1:39 PM) CO2 [22-31 mEq/L] 25 mEq/L (09/09/15 1:39 PM) AGAP [3-20] 9 (09/09/15 1:39 PM) BUN [7-19 mg/dL] 9 mg/dL (09/09/15 1:39 PM) Glucose Lvl [70-99 mg/dL] 105 mg/dL *HI* (09/09/15 1:39 PM) Creatinine Lvl [0.57-1.11 mg/dL] 0.85 mg/dL (09/09/15 1:39 PM) eGFR [>60 mL/min] >60 mL/min 1 (09/09/15 1:39 PM) Calcium Lvl [8.9-10.5 mg/dL] 9.5 mg/dL (09/09/15 1:39 PM) Albumin Lvl [3.5-5.0 gm/dL] 4.4 gm/dL (09/09/15 1:39 PM) Total Protein [6.4-8.3 gm/dL] 7.2 gm/dL (09/09/15 1:39 PM) Globulin [1.8-4.0 gm/dL] 2.8 gm/dL (09/09/15 1:39 PM) ALT [0-55 U/L] 7 U/L (09/09/15 1:39 PM) AST [5-34 U/L] 17 U/L (09/09/15 1:39 PM) Alk Phos [40-150 U/L] 48 U/L (09/09/15 1:39 PM) Bili Total [0.2-1.2 mg/dL] 0.7 mg/dL (09/09/15 1:39 PM) 1Result Comment: Multiply eGFR results by 1.21 for race. Immunizations Vaccine Date Refusal Reason tetanus/diphth/pertuss (Tdap) adult/adol 08/17/15 tetanus/diphth/pertuss (Tdap) adult/adol 06/30/08 hepatitis A-hepatitis B vaccine 01/11/09 hepatitis A-hepatitis B vaccine 11/16/08 hepatitis A-hepatitis B vaccine 06/30/08 human papillomavirus vaccine 11/16/08 influenza virus vaccine, inactivated1 08/04/14 influenza virus vaccine, live 08/01/13 1Result Comment: [08/04/2014] See scanned document Procedures Procedure Date Related Diagnosis Body Site Collection of venous blood by venipuncture 09/09/15 Extraction of wisdom tooth Social History Social History Type Response Smoking Status Never smoker Assessment and Plan Extracted from: Title: Ambulatory Patient Education Author: Omari Terry MD Date: 09/09/15 Family Medicine Erythema Nodosum Erythema nodosum is [...] be prescribed to relieve symptoms. SSKI drops ([place]) taken with juice at breakfast, lunch and [...] 11/01/2005 Document Revised: 12/16/2012 Document Reviewed: 11/05/2009 [facility] Patient Information 2015 [employer]. This information is not intended to replace advice given to you by your health care provider. Make sure you discuss any questions you have with your health care provider. No follow up information was provided. Extracted from: Title: erythema nodosum Author: Omari Terry MD Date: 09/09/15 Impression and Plan Diagnosis Erythema nodosum (FMH95-BP L52, Working, Medical). Aphthous stomatitis (WSL26-IA K12.0, Working, Medical). Anterior cervical adenopathy (CGJ74-MA R59.0, Working, Medical). Anterior cervical adenopathy (TPZ73-RC R59.9, Working, Medical). Plan: 1) Lab and CXR ordered, for further evaluatoin of the erythema nodosum. 2) Rest at home. 3) Continue your present meds. We will consider stopping your BCPs if the erythema nodosum doesn't gradually resolve on its own over the next 6-8 weeks. 4) Report any new symptoms right away, and followup as needed.. Orders Orders (Selected) Outpatient Orders InProcess (In Process) Group A Strep Culture: Ordered ASO Screen: CBC w/ Differential: CMP: Office Visit Level 4 Est 58709: Completed Rapid Strep: XR Chest 2 Views: . Dx/Order Association Plan: Diagnosis: Anterior cervical adenopathy Comment: Ordered: ASO Screen; Blood, Routine Collect, 09/09/15 13:20:00 RETAIL SALESPERSON, Once, Stop date 09/09/15 13:20:00 RETAIL SALESPERSON, Lab Collect, Anterior cervical adenopathy | Erythema nodosum CBC w/ Differential; Blood, Routine Collect, 09/09 13:20:00 RETAIL SALESPERSON, Once, Stop date 09/09/15 13:20:00 RETAIL SALESPERSON, Lab Collect, Anterior cervical adenopathy | Erythema nodosum Other status: Rapid Strep; Micro Specimen, Routine collect, 09/09 13:20:00 RETAIL SALESPERSON, Once, Stop date 09/09/15 13:20:00 RETAIL SALESPERSON, Nurse Collect Non-Blood , Anterior cervical adenopathy (Completed) XR Chest 2 Views; 09/09/15 13:20:00 RETAIL SALESPERSON, Routine, Stop date 09/09/15 13:20:00 RETAIL SALESPERSON, Reason: Other, (Free text in Reason for Exam field), Reason: erythema nodosum, Eryt alberto nodosum | Anterior cervical adenopathy | Aphthous stomatitis, ABN Status: Not Required (Completed) Diagnosis: Anterior cervical adenopathy Comment: Ordered: CMP; Blood, Routine Collect, 09/09/15 13:20:00 RETAIL SALESPERSON, Once , Stop date 09/09/15 13:20:00 RETAIL SALESPERSON, Lab Collect, Erythema nodosum | Anterior cervical adenopathy Diagnosis: Aphthous stomatitis Comment: Ordered: Office Visit Level 4 Est 45828; 09/09/15 13:01:00 RETAIL SALESPERSON, Erythema nodosum | Aphthous stomatitis | Anterior cervical adenopathy Other status: XR Chest 2 Views; 09/09/15 13:20:00 RETAIL SALESPERSON, Routine, Stop date 09/09/15 13:20:00 RETAIL SALESPERSON, Reason: Other, (Free text in Reason for Exam field), Reason: erythema nodosum, Erythema nod osum | Anterior cervical adenopathy | Aphthous stomatitis, ABN Status: Not Required (Completed) Diagnosis: Erythema nodosum Comment: Ordered: ASO Screen; Blood, Routine Collect, 09/09/15 13:20:00 RETAIL SALESPERSON, Once, Stop date 09/09/15 13:20:00 RETAIL SALESPERSON, Lab Collect, Anterior cervical adenopathy | Erythema nodosum CBC w/ Differential; Blood, Routine Collect, 09/09 13:20:00 RETAIL SALESPERSON, Once, Stop date 09/09/15 13:20:00 RETAIL SALESPERSON, Lab Collect, Anterior cervical adenopathy | Erythema nodosum CMP; Blood, Routine Collect, 09/09/15 13:20:00 RETAIL SALESPERSON , Once, Stop date 09/09/15 13:20:00 RETAIL SALESPERSON, Lab Collect, Erythema nodosum | Anterior cervical adenopathy Office Visit Level 4 Est 27805; 09/09/15 13:01:00 RETAIL SALESPERSON, Erythema nodosum | Aphthous stomatitis | Anterior cervical adenopathy Other status: XR Chest 2 Views; 09/09/15 13:20:00 RETAIL SALESPERSON, Routine, Stop date 09/09/15 13:20:00 RETAIL SALESPERSON, Reason: Other, (Free text in Reason for Exam field), Reason: erythema nodosum, Erythema nod osum | Anterior cervical adenopathy | Aphthous stomatitis, ABN Status: Not Required (Completed) End of Orders .
--- OUTSIDE RECORDS SUMMARY | 2017-12-20 15:35 | External Medical Summary | Referral Summary ---
:1985 Author Organization [facility] Address [address] [place] [address] JO[place] Kaur [address] Care Team Providers Name Role Phone Mara Omari Briscoe Primary Care Physician Encounter VC [facility] [id number] Date(s): 09/10/15 - 09/10/15 [facility] [address] [place] [address] [place] K[place] [address] [place] Discharge Disposition: 01-Home or Self Care Attending Physician: Sami Baird MD Admitting Physician: Sami Baird MD Vital Signs No data available for this section Problem List Condition Effective Dates Status Health [...] sores, # 5 g, 1 Refill(s), Pharmacy: [facility] #[id number] Start Date: 09/08/15 Status: Ordered Results No [...] Smoking Status Never smoker Assessment and Plan No data available for this section
--- OUTSIDE RECORDS SUMMARY | 2017-12-20 15:35 | External Medical Summary | Continuity of Care Document ---
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) w/o abn findings Pap Smear Screening, Cervix Encounter for surveillance of contraceptive pills Complete or unsp spontaneous without complication Matern care for oth or susp poor fetl - gr, tri, unsp 14 weeks gestation of - [...] Reference Range Abnormal Flag Comments Panel Description: GLUCOSE TOLERANCE TEST, GESTATIONAL,4SPEC(100G) GLUCOSE, FASTING 08:18:00 75 mg/dL 65-94 N GLUCOSE, 1 HOUR 08:18:00 139 mg/dL <180 N GLUCOSE, 2 HOUR 08:18:00 115 mg/dL <155 N GLUCOSE, 3 HOUR 08:18:00 101 mg/dL <140 N [id number] 08:18:00 See Below Viveros/Coustan Criteria: Two or more values greater than the above reference intervals are suggestive of gestational diabetes. REPORT COMMENT:FASTING:YESTe st performed at [facility] [id number] [place] [address]Dtigitie: TERE MURGUIA DO,MPH Advance Directives Directive Yes / No Effective Date File Name Unknown Encounters Encounter Practice Location Reason(s) Diagnoses Date Provider Care Team Description For Visit Members [facility] Encounter for Judd Referring In Womens suprvsn of normal 8-201 Katharina. Provider: [facility], , second 7 700 Omari PO Box weeks Medical Mara B, 1522, gestation of Center [address], , [facility], 120, [place], [id number], [place], [place], [address]. tel:[phone] tel: , [place]. [id number] tel: [phone] Rupesh [place] Dec-0 Judd In Womens 6-201 Katharina. Jaspreet ABARCA, 7 700 PO Box Medical 1522, [address] [place], , [facility] [place], 120, [id number], [place], tel:[phone] , [place]. tel: [phone] Rupesh [place] Encounter for Dec-0 Judd Referring In Womens suprvsn of normal 4-201 Katharina. Provider: Jaspreet ABARCA, , second 7 700 Omari PO Box [id number] weeks Medical Mara B, 1522, gestation of Center [address], , [facility], 120, Center, [id number], [place], [place], [address]. tel:[phone] tel: , [place]. [id number] tel: [phone] Rupesh [place] Encounter for Nov-1 Judd Referring In Womens suprvsn of normal 3-201 Katharina. Provider: Jaspreet ABARCA, , second 7 700 Omari PO Box [id number] weeks Medical Mara B, 1522, gestation of Center [address] [place] [address], , [facility], 120, Center, [id number], [place], [place], [address]. tel:[phone] tel: , [place]. [id number] tel: [phone] Rupesh [place] Encounter for Oct-1 Judd Referring In Womens suprvsn of normal 8-201 Katharina. Provider: Jaspreet ABARCA, , second 7 700 Omari PO Box [email or web address] weeks Medical Mara B, 1522, gestation of Center [address], , [facility], 120, Center, [id number], [place], [place], [address]. tel:[phone] tel: , [place]. [id number] tel: [phone] Rupesh [place] Matern care for Oct-1 Judd Referring In Womens Ultrasound oth or susp poor 8-201 Katharina. Provider: Jaspreet ABARCA, fetl grth, 2nd 7 700 Omari PO Box tri, unspContact Medical Mara B, 1522, w and exposure to Center [address], ot viral , [facility], communicable 120, Center, [id number], [id number] weeks [place], [place], [address]. tel: [phone] tel: , [place]. [id number] tel: [phone] Rupesh [place] Contact w and Sep-2 Judd Referring In Womens exposure to oth 1-201 Katharina. Provider: Jaspreet ABARCA, viral 7 700 Omari PO Box communicable Medical Mara B, 1522, diseases Center [facility] [place], , [facility], 120, Center, , [place], [address]. tel: tel: , [place]. [id number] tel:[phone] [facility] Matern care for Sep-1 Judd Referring In Womens oth or susp poor 8-201 Katharina. Provider: Jaspreet ABARCA, fetl grth, 2nd 7 700 Omari PO Box tri, [id number] weeks Medical Mara B, 1522, gestation of Center [address], , [facility], 120, Center, [id number], [place], [address]. tel: tel: , [place]. [id number] tel: [phone] Rupesh [place] Encounter for May- Judd Referring In Womens suprvsn of normal 5-201 Katharina. Provider: Jaspreet ABARCA, , first 7 700 Omari PO Box trimester9 weeks Medical Mara B, 1522, gestation of Center [address], , [facility], 120, Center, [id number], [place], [address]. tel: tel: , [place]. [id number] tel: [phone] Rupesh [place] Encounter for Apr-3 Judd Referring In Womens suprvsn of normal 1-201 Katharina. Provider: Jaspreet ABARCA, , first 7 700 Omari PO Box trimesterLess Medical Mara B, 1522, than 8 weeks [facility] of , [facility], 120, Center, [id number], [place], [place], [address]. tel:[phone] tel: , [place]. [id number] tel: [phone] Rupesh [place] Unspecified lump Feb-2 Judd In Womens in breast 4-201 Boring. Jaspreet ABARCA, 7 700 [facility] 15[address], [place] [address], [facility], 120, [id number], [place], [place], tel:[phone] , [place]. tel: [phone] Rupesh [place] Complete or unsp Feb-2 Judd Referring In Womens spontaneous 0-201 Katharina. Provider: Jaspreet ABARCA, without 7 700 Omari [facility] complication [facility], 1522, Center [facility] [address], [facility], 120, Center, , [place], [place], [address]. tel:[phone] tel: , [place]. [id number] tel: [phone] Rupesh [place] Pap Smear Feb-0 Judd Referring In Womens Screening, Cervix 8-201 Boring. Provider: Jaspreet ABARCA, 7 700 Omari [facility], 1522, [address], [facility], 120, Center, , [place], [place], [address]. tel:[phone] tel: , [place]. [id number] tel: [phone] Rupesh [place] Unspecified lump Oct-1 Judd Referring In Womens in breast 1-201 Boring. Provider: Jaspreet ABARCA, 6 700 Omari [facility], 1522, Center [facility] [address], [facility], 120, Center, [id number], [place], [place], [address]. tel:[phone] tel: , [place]. [id number] tel: [phone] Rupesh [place] Unspecified lump Sep-0 Judd In Womens in Katharina. Jaspreet ABARCA, breastUnspecified 6 700 PO Box lump in breast Medical 15[address], [place] [address], [facility] [place], 120, [id number], [place], [place], tel:[phone] , [place]. tel: [phone] Rupesh [place] Dysfunctional Feb-2 Judd Referring In Womens Uterine Katharina. Provider: Jaspreet ABARCA BleedingEncntr 6 700 Omari PO Box for cutter banana room exam Medical Mara B, 1522, (general) Center [address], (routine) w/o abn , [facility], findingsPap Smear 120, [place], [id number], Screening, [place], [place], [address]. tel:2 for surveillance [phone] tel: of contraceptive , [place]. [id number] pills tel: [phone] Rupesh [place] Unspecified lump Feb-1 Judd In Womens in breast Katharina. Jaspreet ABARCA, 6 700 PO Box Medical [address], [place] [address], [facility] [place], 120, [id number], [facility] [place], tel: [phone] , [place]. tel: [phone] Family History Family Member Diagnosis Age At [...] Insurance type Covered constitution party ID Authorization(s) [id number] [id number] [employer] CI [id number] [employer] CI [id number] Social History Type Description Quantity Date Captured [...] Radiology Order Breast Ultrasound Right Breast Ordered ([id number]) Future Order: Radiology Order Breast Ultrasound Right Breast Ordered ([id number]) Future Order: Radiology Order Diagnostic Mammogram Right Breast- Ordered If indicated ([id number]) Future Order: Radiology Order Breast Ultrasound Right Breast Ordered ([id number]) Future Order: Radiology Order Diagnostic Mammogram Right Breast, Ordered if indicated ([id number]) Future Order: Radiology Order Complete OB Ultrasound > 14 Ordered Weeks ([id number]) Future Order: Lab Order Hemoglobin ([id number]) Ordered Future Order: Lab Order Hematocrit ([id number]) Ordered Future Order: Lab Order Gest. Diabetes 1-Hr Screen ([id number]) Ordered Date Type Problem Goal Intervention Status [...]
--- OUTSIDE RECORDS SUMMARY | 2017-12-20 15:35 | External Medical Summary | Continuity of Care Document ---
:1985 Author Organization [facility] Address [address] [place], [place] [id number] Phone Care Team Providers Name Role Phone [...] Effective Dates (start - stop) Clinical Status Matern care for oth or susp poor fetl - grth, 2nd tri, unsp Contact w and exposure to oth viral - communicable diseases 18 weeks gestation of - Pap Smear Screening, Cervix - Encounter for suprvsn of normal - , first trimester Less than 8 weeks gestation of - Unspecified lump in breast Unspecified lump in breast Unspecified lump in breast Unspecified lump in breast Unspecified lump in breast Dysfunctional Uterine Bleeding 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) w/o abn findings Pap Smear Screening, Cervix Encounter for surveillance of contraceptive pills Complete or unsp spontaneous without complication Matern care for oth or susp poor fetl - grth, 2nd tri, unsp 14 weeks gestation of - Contact w and exposure to oth viral - communicable diseases Encounter for suprvsn of normal - , first trimester 9 weeks gestation of - Encounter for suprvsn of normal - , second trimester 18 weeks gestation of - Initiation of Oral Contraceptives - Active Breast Lump/Mass - Active Active Procedures Procedure Date Ultrasound exam of preg uterus, complete Results Test Name Date and Time Measure Units Reference Range Abnormal Flag Comments Unknown Advance Directives Directive Yes / No Effective Date File Name Unknown Encounters Encounter Practice Location Reason(s) Diagnoses Date Provider Care Team Description For Visit Members Rupesh [place] Encounter for Jul- Judd Referring In Womens suprvsn of normal Katharina. Provider: Jaspreet ABARCA, , second 7 700 [address] PO Box [id number] weeks Medical [facility], 1522, gestation of Center [address], , [facility], 120, Center, [id number], [place], [place], [address]. tel: tel: , . [id number] tel: [phone] Rupesh [place] Matern care for Jul- Judd Referring In Womens Ultrasound oth or susp poor Katharina. Provider: Jaspreet ABARCA fetl grth, 2nd 7 700 [address]ari PO Box tri, unspContact Medical [facility], 1522, w and exposure to Center [address], [facility] viral , [facility], communicable 120, Center, , [email or web address] weeks [place], [place], [address]. tel: tel: , [place]. [id number] tel: [phone] Rupesh [place] Contact w and Sep- Judd Referring In Womens exposure to oth Katharina. Provider: Jaspreet ABARCA, viral 7 700 [address] PO Box communicable Medical [facility], 1522, diseases Center [address], [facility], 120, Center, [id number], [place], [place], [address]. tel: tel: , . [phone] tel: [phone] [facility] Matern care for Sep- Judd Referring In Womens oth or susp poor 8-201 Katharina. Provider: Jaspreet ABARCA, fetl grth, 2nd 7 700 [address]ari PO Box tri, unsp14 weeks Medical Mara B, 1522, gestation of Center [address], Dr [facility], 120, Center, [id number], [place], [place], [address]. tel:[phone] tel: , . [id number] tel: [phone] Rupesh [place] Encounter for Judd Referring In Womens suprvsn of normal 5-201 Katharina. Provider: Jaspreet ABARCA, , first 7 700 Omari PO Box trimester9 weeks Medical Mara B, 1522, gestation of Center [address], Dr [facility], 120, Center, , [place], [place], [address]. tel:[phone] tel: , . [id number] tel: [phone] Rupesh [place] Encounter for Apr- Judd Referring In Womens suprvsn of normal 1-201 Katharina. Provider: Jaspreet ABARCA, , first 7 700 [address] PO Box trimesterLess Medical Mara B, 1522, than 8 weeks Center [address] [place], gestation of Dr [facility], 120, Center, , [place], [place], [address]. tel:[phone] tel: , . [id number] tel: [phone] Rupesh [place] Unspecified lump Feb-2 Judd In Womens in breast 4-201 Katharina. Jaspreet ABARCA, 7 700 PO Box Medical 15[address], [address] [facility], 120, , [place], tel:[phone] , . tel: [phone] [facility] Complete or unsp Feb-2 Judd Referring In Womens spontaneous 0-201 Katharina. Provider: Jaspreet ABARCA, without 7 700 [address]ari PO Box complication Medical Mara B, 1522, Center [facility] [address], [facility], 120, Center, [id number], [place], [place], [address]. tel:[phone] tel:+ , [place]. [id number] tel: [phone] [facility] [place] Pap Smear Feb-0 Judd Referring In Womens Screening, Cervix [place]. Provider: Jaspreet ABARCA, 7 700 Omari PO Box [facility], 1522, Center [facility] [address], [facility], 120, Center, , [place], [place], [address]. tel:[phone] tel:+ , [place]. [id number] tel: [phone] [facility] [place] Unspecified lump Oct- Judd Referring In Womens in breast [place]. Provider: Jaspreet ABARCA, 6 700 [address]ari PO Box [facility], 1522, Center [facility] [address], [facility], 120, Center, , [place], [place], [address]. tel:[phone] tel:+ , [place]. [id number] tel: [phone] [facility] [place] Unspecified lump Sep-0 Judd In Womens in [place]. Jaspreet ABARCA, breastUnspecified 6 700 PO Box lump in breast Medical 15[address], [address], [facility], 120, [id number], [facility] [place], tel:[phone] , [place]. tel: [phone] [facility] [place] Dysfunctional Feb-2 Judd Referring In Womens Uterine [place]. 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 tel: for surveillance [phone] tel: of contraceptive , [place]. [id number] pills tel: [phone] Rupesh [place] Unspecified lump Judd In Womens in breast 201 [facility], 6 700 PO [facility] [address], [address], [facility] [place], 120, [id number], [place], tel: [phone] , [place]. tel: [phone] Family History Family Member Diagnosis Age At [...] Covered constitution party ID Authorization(s) [employer] CI [id number] [facility] CI [id number] [employer] CI [id number] [employer] CI [id number] Social History Type Description Quantity Date Captured [...] Margarita Smith BOOKED Future Order: Radiology Order Complete OB Ultrasound > 14 Ordered Weeks ([id number]) Future Order: Radiology Order Breast Ultrasound Right Breast Ordered ([id number]) Future Order: Radiology Order Breast Ultrasound Right Breast Ordered ([id number]) Future Order: Radiology Order Diagnostic Mammogram Right Breast- Ordered If indicated ([id number]) Future Order: Radiology Order Breast Ultrasound Right Breast Ordered ([id number]) Future Order: Radiology Order Diagnostic Mammogram Right [...]
--- OUTSIDE RECORDS SUMMARY | 2017-12-20 15:35 | External Medical Summary | Referral Summary ---
:1985 Author Organization [facility] Address [address] [place] [address] Care Team Providers Name Role Phone Omari Terry Primary Care Physician Encounter [facility] [id number] Date(s): 05/19/16 - 05/19/16 [facility] [address] [place] [address] [place] Discharge Diagnosis: Left foot pain Discharge Diagnosis: Acquired hallux rigidus of left foot Discharge Disposition: 01-Home or Self Care Attending Physician: Jn España DPM Admitting Physician: Jn España DPM Referring Physician: Omari Terry MD Vital Signs No data available for [...] Reactions, Alerts No Known Medication Allergies Medications Duexis 800 mg-26.6 mg oral tablet 1 tabs, Oral, TID, X 30 days, # 90 tabs, 0 Refill(s), [facility] Start Date: 05/19/16 Stop Date: 06/18/16 Status: Orderedibuprofen as needed for pain, 0 [...] Extracted from: Title: Ambulatory Patient Education Author: Jn España DPM Date: 05/19/16 Musculoskeletal Hallux Rigidus Hallux rigidus is a condition involving pain and a loss of motion of the first (big) toe. The pain gets worse with lifting up (extension) of the toe. This is usually due to arthritic bony bumps (spurring) of the joint at the base of the big toe. SYMPTOMS Pain, with lifting up of the toe. Tenderness over the joint where the big toe meets the foot. Redness, swelling, and warmth over the top of the base of the big toe ( sometimes). Foot pain, stiffness, and limping. CAUSES Hallux rigidus is caused by arthritis of the joint where the big toe meets the foot. The arthritis creates a bone spur that pinches the soft tissues when the toe is extended. RISK INCREASES WITH: Tight shoes with a narrow toe box. Family history of foot problems. Gout and rheumatoid and psoriatic arthritis. History of previous toe injury, including "turf toe." Long first toe, flat feet, and other big toe bony bumps. Arthritis of the big toe. PREVENTION Wear wide-toed shoes that fit well. Tape the big toe to reduce motion and to prevent pinching of the tissues between the bone. Maintain physical fitness: Foot and ankle flexibility. Muscle strength and endurance. PROGNOSIS This condition can usually be managed with proper treatment. However, surgery is typically required to prevent the problem from recurring. RELATED COMPLICATIONS Injury to other areas of the foot or ankle, caused by abnormal walking in an attempt to avoid the pain felt when walking normally. TREATMENT Treatment first involves stopping the activities that aggravate your symptoms. Ice and medicine can be used to reduce the pain and inflammation. Modifications to shoes may help reduce pain, including we aring stiff-soled shoes, shoes with a wide toe box, inserting a padded donut to relieve pressure on top of the joint, or wearing an arch support. Corticosteroid injections may be given to reduce inflamm ation. If nonsurgical treatment is unsuccessful, surgery may be needed. Surgical options include removing the arthritic bony spur, cutting a bone in the foot to change the arc of motion (allowing the to e to extend more), or fusion of the joint (eliminating all motion in the joint at the base of the big toe). MEDICATION If pain medicine is needed, nonsteroidal anti-inflammatory medicines ( aspirin and ibuprofen), or other minor pain relievers (acetaminophen), are often advised. Do not take pain medicine for 7 days before surgery. Prescription pain relievers are usually prescribed only after surgery. Use only as directed and only as much as you need. Ointments for arthritis, applied to the skin, may give some relief. Injections of corticosteroids may be given to reduce inflammation. HEAT AND COLD Cold treatment (icing) relieves pain and reduces inflammation. Cold treatment should be applied for 10 to 15 minutes every 2 to 3 hours, and immediately after activity that aggravates your symptoms. Use ice packs or an ice massage. Heat treatment may be used before performing the stretching and strengthening activities prescribed by your caregiver, physical therapist, or dog handler or trainer. Use a heat pack or a warm water soak. SEEK MEDICAL CARE IF: Symptoms get worse or do not improve in 2 weeks, despite treatment. After surgery you develop fever, increasing pain, redness, swelling, drainage of fluids, bleeding, or increasing warmth. New, unexplained symptoms develop. (Drugs used in treatment may produce side effects.) This information is not intended to replace advice given to you by your health care provider. Make sure you discuss any questions you have with your health care provider. Document Released: 09/24/2006 Document Revised: 10/15/2015 Document Reviewed: 01/06/2010 ExitCare Patient Information 2016 [facility]. No follow up information was provided. Extracted from: Title: Office Visit Note Author: Jn España DPM Date: 05/19/16 Assessment/Plan 1.Left foot pain 2.Acquired hallux rigidus of left foot X-ray of left foot 3 view showed arthritic changes of first metatarsophalangeal joint. X-ray images were reviewed with the patient. Patient was given sample ofDuexis andprescription was sent to specialty pharmacy. We discussedtopical NSAIDs and cortisone injection if condition does not improve. Return to clinic as needed. Orders: ibuprofen-famotidine, 1 tabs, Oral, TID, X 30 days, # 90 tabs, 0 Refill(s), Pharmacy: [facility]
[2017-12-20 15:44] VITALS: BMI 25.8
[2017-12-20] MEDS ORDERED: ACETAMINOPHEN 500 MG TABLET PO PRN (15:56)
[2017-12-20] MEDS ORDERED: METHYLERGONOVINE 0.2 MG/ML INJECTION IM PRN (15:56)
[2017-12-20] MEDS ORDERED: CARBOPROST 250 MCG/ML INJECTION IM PRN (15:56)
[2017-12-20] MEDS ORDERED: MAG-AL + SIM ORAL LIQUID 30ml PO PRN (15:56)
[2017-12-20] MEDS ORDERED: CALCIUM CARBONATE Chewable 500mg TABLET PO PRN (15:56)
[2017-12-20] MEDS: LR 1,000 ML IV PRN ×2 (16:15→22:55)
[2017-12-20] MEDS: D5LR 1,000 ML IV SCH (16:25)
--- NOTE | 2017-12-20 16:55 | Anesthesia Preoperative Report ---
Anesthesia Epidural/Spinal Rec - Date and Time Date: 12/20/17 Preoperative Diagnosis: Spont labor Procedure: Labor Epidural Plan: Epidural - Vital Signs /Para: P:0 - Medictaions & Allergies Inpatient Medications: Current Medications Acetaminophen (Tylenol) 500 - 1,000 mg PO Q4H PRN PRN Reason: Pain Al Hydroxide/Mg Hydroxide (Maalox Plus) 30 ml PO Q3H PRN PRN Reason: Indigestion Calcium Carbonate (Tums) 500 - 1,000 mg PO Q2H PRN PRN Reason: Indigestion Carboprost Tromethamine (Hemabate) 250 mcg IM O PRN PRN Reason: .Downtime Dextrose/Lactated Ringer's (Dextrose 5%-Lactated Ringers) 1,000 mls @ 125 mls/ hr IV .Q8H GRACIELA Last Admin: 12/20/17 16:25 Dose: 125 mls/hr Lactated Ringer's (Lactated Ringers) 1,000 mls @ 999 mls/hr IV .Q1H1M PRN Last Admin: 12/20/17 16:15 Dose: 999 mls/hr Methylergonovine Maleate (Methergine) 0.2 mg IM O PRN Misoprostol (Cytotec) 800 mcg MN ONCE PRN Allergies/Adverse Reactions: Allergies Allergy/AdvReac Type Severity Reaction Status Date / Time No Known Allergies Allergy Unverified 11/17/16 11:04 - Home Medications Home Medications: Home Medications Medication Instructions Recorded Confirmed Type Multivitamin [Multi-Day Vitamins] 1 tab PO DAILY #30 tab 11/16/16 History - Medical History Respiratory: DENIES: Asthma, Bronchitis, Chronic Obstructive Pulmonary Disease (COPD), Dyspnea, Orthopnea, Pulmonary Embolism, Pneumonia, Upper Respiratory Infection, Pulmonary Edema, Sleep Apnea, Tuberculosis, Other Cardiovascular: DENIES: Abnormal EKG, Angina, Arrhythmia, Congestive Heart Failure, Coronary Artery Disease, Heart Murmur, Hypertension, Hypotension, High Cholesterol, Myocardial Infarction, Rheumatic Fever, Valvular Heart Disease, Other Gastrointestional: Reports: Gastroesophageal Reflux Disease (with ) Neuro/Musculoskeletal: Denies: HX.MS.OSAR, Back Problems, Cerebrovascular Accident, Depression, Headaches, Loss of Consciousness, Muscle Weakness, Neuromuscular Disorder, Paralysis, Paresthesia, Syncope, Seizures, Other Renal/Endocrine: DENIES: Diabetes Mellitus Type 1, Diabetes Mellitus Type 2, Renal Failure, Dialysis, Thyroid Disease, Weight Loss, Weight Gain, Other Other History: Reports: Now - Surgical History HEENT Surgeries: Reports: Oral Surgery (wisdom teeth removed) Anesthesia Reactions: None Hx Family Anesthesia Reaction: No History of Motion Sickness: No - Social History Smoking Status: Never smoker - Pertinent Findings Lab Data: CBC and BMP 12/20/17 16:20 - Physical Exam Respiratory Exam: lungs clear, bilateral breath sounds equal Cardiovascular Exam: regular rate and rhythm, no murmur - Airway Assessment Mallampati Score: II TMD: 3 Fingerbreadths Neck Extension: good Overall Assessment: may be difficult intubation - ASA ASA Score: 2 - Discussion Discussion: Discussed risks/options/alternatives of anesthesia and questions answered. Patient consents. Nursing pain assessment noted. Anesthesia Discussion: spouse Attestation Statement: Prior to the delivery of any anesthetic medication, I examined the patient, developed the plan, obtained the patient's consent and discussed the risk and benefits of the procedure with the patient/guardian.
[2017-12-20] MEDS ORDERED: ZOLPIDEM 10 MG TABLET PO PRN (17:26)
--- NOTE | 2017-12-20 17:48 | Progress Note ---
DATE 12/20/[address] Judd. NARRATIVE Ms. Smith is a 32-year-old G1 who has been receiving care routinely with Dr. Judd. Her JACOB is 12/21/2017. Her has been essentially low risk. She presented to the office today with a complaint of contractions. Her last cervical exam in the office showed 1 cm and today she was at 4 cm. She is albert irregularly and sparsely here on the monitor at [facility]. We have discussed the option of augmenting her labor versus allowing her to eat dinner and having her get some sleep tonight. She elects for this. heart tones are category 1, reactive and reassuring. I have ordered her dinner and an Ambien but if she progresses in labor will, of course , change the plan. MTDD
[2017-12-20] MEDS ORDERED: NALBUPHINE 10 MG/ML INJECTION IVP PRN (20:03)
[2017-12-20] MEDS ORDERED: BUTORPHANOL 2 MG/ML INJECTION IVP PRN (20:05)
[2017-12-21] MEDS: LR 1,000 ML IV PRN (02:14)
[2017-12-21] MEDS: D5LR 1,000 ML IV SCH (02:15)
[2017-12-21] MEDS ORDERED: OXYTOCIN DRIP 30 UNIT/500 ML ML IV SCH (06:22)
[2017-12-21] MEDS ORDERED: HYDROCORTISONE 2.5% CREAM 30gm RECTALLY PRN (06:22)
[2017-12-21] MEDS ORDERED: DiphenhydrAMINE 25 MG CAPSULE PO PRN (06:22)
[2017-12-21] MEDS ORDERED: ACETAMINOPHEN 500 MG TABLET PO PRN (06:22)
[2017-12-21] MEDS ORDERED: CALCIUM CARBONATE Chewable 500mg TABLET PO PRN (06:22)
[2017-12-21] MEDS ORDERED: MAG-AL + SIM ORAL LIQUID 30ml PO PRN (06:22)
[2017-12-21] MEDS: IBUPROFEN 800 MG TABLET PO SCH ×2 (06:24→14:27)
[2017-12-21] MEDS: HYDROCODONE/APAP 5mg/325mg TABLET PO PRN ×4 (06:25→19:45)
--- NOTE | 2017-12-21 10:15 | Anesthesia Postoperative Note ---
- Date and Time Date: 12/21/17 Time: 10:13 - Status Patient Participated in Evaluation: Patient Participated in Person Respiratory Function: Airway Patent, Regular Respirations Cardiovascular Function: Regular Pulse Mental Status: Alert and Oriented Pain Intensity: 0 Hydration: Taking PO Fluids Complications During Recover: None Apparent Post Anesthesia Care Notes: ambulate without problems - Follow-Up Instructions Instructions: Per Surgeon
[2017-12-21] MEDS: DOCUSATE CALCIUM 240 MG CAPSULE PO SCH (12:31)
[2017-12-21] MEDS: PRENATAL VITAMIN TABLET PO SCH (12:31)
--- NOTE | 2017-12-21 14:23 | Labor and Delivery Note ---
This is a delivery note for a patient of Dr. Judd. Date of Delivery: 12/20/2017 Mrs. Smith presented in latent phase of labor and then went on to progress to active phase. She began to push at the complete and +2 presentation. She pushed with excellent effort and had good pain control with her epidural analgesia. Baby had persistent deep variable decelerations. The contractions would occasionally couple or triple and these, with and without pushing, would cause deceleration which would then return to baseline. We had her push intermittently, skipping contractions frequently. Twice after prolonged decelerations I applied the vacuum. We discussed this with the patient and with her and reviewed the risks. The vacuum was applied without any difficulty and I pulled for three contractions dropping the pressure in between. The heart tones improved and I removed the vacuum and she continued to push well. Another episode of this occurred and once again we applied the vacuum without difficulty. Over the course of three contractions she pushed very well and, as I pulled with the vacuum, then once again heart tones improved. She continued to push with the vacuum off, eventually delivering the head spontaneously in the OA presentation. We had not seen amniotic fluid prior to this time. It appeared to be very thinly meconium stained. Baby was delivered with one further push and then bulb suctioned thoroughly. Baby was then placed on mother's abdomen. After about 2-1/2 minutes the cord was doubly clamped and cut. This is a liveborn female with Apgars of 7/8/9. Her weight was 7 pounds, 12.4 ounces. After a short time, the placenta delivered spontaneously, intact. It had a normal configuration and a normal-appearing three-vessel cord. There was a second-degree midline laceration that extended to the right labia, partly removing it to where it was attached only to the left side. I repaired this with two 0 Vicryl sutures. This took some time, but the patient tolerated it well and anatomy was then intact. After completion, I performed a vaginal sweep and then performed a rectal exam. The mucosa was intact, as was the anal sphincter. We could see the sphincter capsule at the beginning of the second-degree repair and it appeared intact at that time. There was some very brisk bleeding initially after delivery of the placenta. This resolved with fundal massage and IM Methergine. Total blood loss was approximately 500 ml. At the time of this dictation mother and baby are doing well. MTDD
[2017-12-22] MEDS: HYDROCODONE/APAP 5mg/325mg TABLET PO PRN ×5 (00:44→23:05)
[2017-12-22] MEDS: IBUPROFEN 800 MG TABLET PO SCH ×5 (00:45→19:01)
[2017-12-22] MEDS: PRENATAL VITAMIN TABLET PO SCH ×2 (07:42→11:18)
[2017-12-22] MEDS: DOCUSATE CALCIUM 240 MG CAPSULE PO SCH ×2 (07:42→11:18)
--- NOTE | 2017-12-22 12:58 | OB/GYN Progress Note ---
OB-PP Progress Note - General PPD1 Maternal Group B Strep: Negative Maternal blood type: O+ Maternal Rubella Status: Immune - Subjective Date: 12/22/17 Lochia: Minimal Pain: controlled Voiding: voiding Nausea or Vomiting Present: No - Objective Vital Signs: Last Vital Signs Temp 97.6 F 12/22/17 07:30 Pulse 84 12/22/17 07:30 Resp 16 12/22/17 07:30 BP 111/59 12/22/17 07:30 Pulse Ox 97 12/21/17 21:59 Urine Output: good General: alert and oriented Cardiovascular: regular rate,rhythm Respiratory: non-labored Abdomen: fundus firm, non-tender Extremities: non-tender - Assessment Assessment: SP, - Plan Plan: routine care
[2017-12-22 17:31] VITALS: O2SAT 100
--- NOTE | 2017-12-23 03:15 | OB/GYN Progress Note ---
OB-PP Progress Note - General PPD2 Maternal Group B Strep: Negative Maternal blood type: O+ Maternal Rubella Status: Immune - Subjective Date: 12/23/17 Lochia: Minimal Pain: controlled Voiding: voiding Nausea or Vomiting Present: No - Objective Vital Signs: Last Vital Signs Temp 97.9 F 12/22/17 23:18 Pulse 99 12/22/17 23:18 Resp 18 12/22/17 23:18 BP 119/72 12/22/17 23:18 Pulse Ox 100 12/22/17 16:33 Urine Output: good General: alert and oriented Cardiovascular: regular rate,rhythm Respiratory: non-labored Abdomen: fundus firm, non-tender Extremities: non-tender - Assessment Assessment: SP, - Plan Plan: routine care, discharge home Expected date of discharge: 12/23/17
[2017-12-23] MEDS: IBUPROFEN 800 MG TABLET PO SCH ×3 (04:12→12:13)
[2017-12-23] MEDS: HYDROCODONE/APAP 5mg/325mg TABLET PO PRN ×2 (04:13→12:12)
[2017-12-23 08:09] VITALS: BP 120/60; PULSE 74; RESP 16; TEMP 97.7
[2017-12-23] MEDS: PRENATAL VITAMIN TABLET PO SCH (12:13)
[2017-12-23] MEDS: DOCUSATE CALCIUM 240 MG CAPSULE PO SCH (12:14)
== END 2017-12-23 13:26 | disposition home or self-care (01) | DRG 774 ==
LOC: MC 15:26 → OBOBS 15:27 → MC 16:03
PROVIDERS: ADMIT Obstetrics & Gynecology; ATTEND Obstetrics & Gynecology